=== PATIENT | female | born 1960 ===

== ENCOUNTER 2019-04-20 16:59 | Inpatient (IN) | payer MEDICAID ==
[2019-04-20] MEDS ORDERED: VANCOMYCIN 1,750 MG in SODIUM CHLORIDE 0.9% 500 ML 500 ML IV ONE (18:02)
[2019-04-20] MEDS ORDERED: CEFEPIME/NS 2 GM/100 ML 2 GM/100 ML BAG IV SCH (18:02)
[2019-04-20] MEDS ORDERED: FUROSEMIDE 40 MG/4 ML INJ IV ONE (18:03)
[2019-04-20] MEDS ORDERED: ACETAMINOPHEN 500 MG TAB PO ONE (18:03)
--- NOTE | 2019-04-20 18:28 | XRay Report ---
CHEST 1 VIEW INDICATION: possible Sepsis. COMPARISON: None FINDINGS: Support devices: None. Heart: Mild cardiomegaly. Lungs/Pleura: Minimal edema. Additional findings: None. IMPRESSION: 1. Mild cardiomegaly with minimal edema. Signer Name: Gerry Gayle MD Signed: 04/20/2019 6:24 PM Workstation Name: [id number]
[2019-04-20 18:58] LABS: Basophils % (Auto) 0.2 % (0.0-1.8); Eosinophils % (Auto) 0.1 % (0.0-4.3); Hematocrit 39.9 % (30.3-42.9); Hemoglobin 13.3 gm/dl (10.1-14.3); Lymphocytes # (Auto) 0.7 K/mm3 (1.2-5.4); Lymphocytes % (Auto) 9.9 % (13.4-35.0); Mean Corpuscular HGB Conc 33 % (30-34); Mean Corpuscular Volume 90 fl (79-97); Monocytes # (Auto) 0.5 K/mm3 (0.0-0.8); Monocytes % (Auto) 7.3 % (0.0-7.3); Platelet Count 168 K/mm3 (140-440); Red Blood Count 4.42 M/mm3 (3.65-5.03)
[2019-04-20] MEDS ORDERED: VANCOMYCIN PHARMACY TO DOSE IV SCH (19:00)
[2019-04-20 19:12] LABS: Alanine Aminotransferase 19 units/L (7-56); Albumin 3.6 g/dL (3.9-5); BUN/Creatinine Ratio 17; Blood Urea Nitrogen 12 mg/dL (7-17); Calcium 9.2 mg/dL (8.4-10.2); Hemolysis Index 53
[2019-04-20 19:30] LABS: Bilirubin,Urine NEG (Negative); Blood,Urine NEG (Negative); Color,Urine Yellow (Yellow); RBC,Urine < 1.0 /HPF (0.0-6.0)
[2019-04-20] MEDS ORDERED: NITROGLYCERIN 0.4 MG TAB SUBL SL PRN (19:37)
[2019-04-20] MEDS ORDERED: ALBUTEROL 2.5 MG/3 ML NEBU IH PRN (19:37)
[2019-04-20 19:38] LABS: INR 1.9 (0.87-1.13)
--- NOTE | 2019-04-20 20:44 | History and Physical Report ---
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 ED with complaints of difficulty in breathing. Patient states that she was admitted to [facility] on 04/16/19 and discharged yesterday (04/19/19). During her admission at [facility], pt reports undergoing therapeutic and diagnostic thoracentesis with removal of approx 1L of fluid. Per pt report pathology was negative for malignancy from thoracentesis. Since being discharged from [facility], patient states that she is experiencing difficulty in breathing. She was unable to lie flat last night, which caused her to sit up and sleep in the couch. As the day progressed her dyspnea worsened. She decided to come in for further evaluation and treatment. Additionally pt complains of pelvic pain, which she describes as sharp and rates 6/10. The pain is constant but varies in intesity. She also complains of poor appetite and poor oral intake 1 day and chills. She acknowledges intermittent nonproductive cough. Past History Past Medical History: hypertension, other (Leiomysarcoma, scoliosis, glaucoma, fibroids ) Past Surgical History: Other (knee surgery) Social history: lives with family, other (former smoker, quit 6-7 months ago, smoker for >40yrs) Family history: no significant family history Medications and Allergies Allergies Allergy/AdvReac Type Severity Reaction Status Date / Time mushrooms Allergy Unknown Uncoded 04/20/19 17:01 Home Medications Medication Instructions Recorded Confirmed Last Taken Type Furosemide [Lasix] 20 mg PO QDAY 04/20/19 04/20/19 Unknown History Lisinopril [Zestril] 20 mg PO QDAY 04/20/19 04/20/19 Unknown History carvediloL [Coreg] 3.125 mg PO BID 04/20/19 04/20/19 Unknown History Active Meds: Active Medications Acetaminophen (Tylenol) 650 mg PO Q4H PRN PRN Reason: Pain MILD(1-3)/Fever >100.5/MARTINEZ Albuterol (Proventil) 2.5 mg IH Q4HRT PRN PRN Reason: Shortness Of Breath Alprazolam (Xanax) 0.25 mg PO Q8H PRN PRN Reason: Anxiety Aspirin (Baby Aspirin) 81 mg PO QDAY [facility] Carvedilol (Coreg) 3.125 mg PO BID [facility] Docusate Sodium (Colace) 100 mg PO BID [facility] Furosemide (Lasix) 40 mg IV QDAY [facility] Heparin Sodium (Porcine) (Heparin) 5,000 unit SUB-Q Q12HR [facility] Cefepime HCl (Cefepime/Ns 2 Gm/100 Ml) 2 gm in 100 mls @ 200 mls/hr IV 0300,1100,1900 [facility]; Protocol Lisinopril (Zestril) 20 mg PO QDAY [facility] Nitroglycerin (Nitrostat) 0.4 mg SL .Q5MIN PRN PRN Reason: Chest Pain Ondansetron HCl (Zofran) 4 mg IV Q8H PRN PRN Reason: Nausea And Vomiting Potassium Chloride (K-Dur) 10 meq PO QDAY [facility] Sodium Chloride (Sodium Chloride Flush Syringe 10 Ml) 10 ml IV BID [facility] Sodium Chloride (Sodium Chloride Flush Syringe 10 Ml) 10 ml IV PRN PRN PRN Reason: LINE FLUSH Review of Systems All systems: negative Constitutional: poor appetite Cardiovascular: orthopnea, shortness of breath, dyspnea on exertion Respiratory: dyspnea on exertion Genitourinary Female: pelvic pain Exam - Physical Exam Narrative exam: Physical exam General appearance: Present: mild discomfort, alert and oriented 3, chronically ill appearing, adult female - EENT Eyes: Present: PERRL, EOM intact ENT: hearing intact, missing teeth - Neck Neck: Present: supple, normal ROM - Respiratory Respiratory effort: Non-labored Respiratory: diminished bases - Cardiovascular Heart rate: 109 (bpm) Rhythm: Sinus tachycardia Heart Sounds: Present: S1 & S2. Absent: rub, click - Extremities Extremities: no ischemia, pulses intact, - Peripheral Assessment Peripheral Pulses: within normal limits - Abdominal General gastrointestinal: soft, non-tender, normal bowel sounds - Integumentary Integumentary: Present: warm, dry - Musculoskeletal Musculoskeletal: Able to move all extremities -Neurological Neurological: CN II-XII intact - Psychiatric Psychiatric: Appropriate for situation ,cooperative - Constitutional Vitals: Temp Pulse Resp BP Pulse Ox 102.2 F H 112 H 20 166/111 100 04/20/19 17:02 04/20/19 17:02 04/20/19 18:25 04/20/19 17:02 04/20/19 18:25 Results - Labs CBC & Chem 7: 04/20/19 18:24 04/20/19 18:24 Labs: Laboratory Last Values WBC 6.8 K/mm3 (4.5-11.0) 04/20/19 18:24 RBC 4.42 M/mm3 (3.65-5.03) 04/20/19 18:24 Hgb 13.3 gm/dl (10.1-14.3) 04/20/19 18:24 Hct 39.9 % (30.3-42.9) 04/20/19 18:24 MCV 90 fl (79-97) 04/20/19 18:24 MCH 30 pg (28-32) 04/20/19 18:24 MCHC 33 % (30-34) 04/20/19 18:24 RDW 14.0 % (13.2-15.2) 04/20/19 18:24 Plt Count 168 K/mm3 (140-440) 04/20/19 18:24 Lymph % (Auto) 9.9 % (13.4-35.0) L 04/20/19 18:24 [place] % (Auto) 7.3 % (0.0-7.3) 04/20/19 18:24 Eos % (Auto) 0.1 % (0.0-4.3) 04/20/19 18:24 Baso % (Auto) 0.2 % (0.0-1.8) 04/20/19 18:24 Lymph # 0.7 K/mm3 (1.2-5.4) L 04/20/19 18:24 [place] # 0.5 K/mm3 (0.0-0.8) 04/20/19 18:24 Eos # 0.0 K/mm3 (0.0-0.4) 04/20/19 18:24 Baso # 0.0 K/mm3 (0.0-0.1) 04/20/19 18:24 Seg Neutrophils % 82.5 % (40.0-70.0) H 04/20/19 18:24 Seg Neutrophils # 5.6 K/mm3 (1.8-7.7) 04/20/19 18:24 PT 21.5 Sec. (12.2-14.9) H 04/20/19 18:24 INR 1.90 (0.87-1.13) H 04/20/19 18:24 VBG pH 7.483 (7.320-7.420) H 04/20/19 18:24 Sodium 135 mmol/L (137-145) L 04/20/19 18:24 Potassium 3.7 mmol/L (3.6-5.0) 04/20/19 18:24 Chloride 98.5 mmol/L (98-107) 04/20/19 18:24 Carbon Dioxide 24 mmol/L (22-30) 04/20/19 18:24 Anion Gap 16 mmol/L 04/20/19 18:24 BUN 12 mg/dL (7-17) 04/20/19 18:24 Creatinine 0.7 mg/dL (0.7-1.2) 04/20/19 18:24 Estimated GFR > 60 ml/min 04/20/19 18:24 BUN/Creatinine Ratio 17 % 04/20/19 18:24 Glucose 104 mg/dL (65-100) H 04/20/19 18:24 Lactic Acid 1.00 mmol/L (0.7-2.0) 04/20/19 18:24 Calcium 9.2 mg/dL (8.4-10.2) 04/20/19 18:24 Total Bilirubin 1.10 mg/dL (0.1-1.2) 04/20/19 18:24 AST > 28 units/L (5-40) 04/20/19 18:24 ALT 19 units/L (7-56) 04/20/19 18:24 Alkaline Phosphatase 72 units/L (35-129) 04/20/19 18:24 NT-Pro-B Natriuret Pep 2361 pg/mL (0-900) H 04/20/19 18:24 Total Protein 7.4 g/dL (6.3-8.2) 04/20/19 18:24 Albumin 3.6 g/dL (3.9-5) L 04/20/19 18:24 Albumin/Globulin Ratio 0.9 % 04/20/19 18:24 Urine Color Yellow (Yellow) 04/20/19 19:18 Urine Turbidity Clear (Clear) 04/20/19 19:18 Urine pH 8.0 (5.0-7.0) H 04/20/19 19:18 Ur Specific [place] 1.013 (1.003-1.030) 04/20/19 19:18 Urine Protein 30 mg/dl mg/dL (Negative) 04/20/19 19:18 Urine Glucose (UA) Neg mg/dL (Negative) 04/20/19 19:18 Urine Ketones Neg mg/dL (Negative) 04/20/19 19:18 Urine Blood Neg (Negative) 04/20/19 19:18 Urine Nitrite Neg (Negative) 04/20/19 19:18 Urine Bilirubin Neg (Negative) 04/20/19 19:18 Urine Urobilinogen 2.0 mg/dL (<2.0) 04/20/19 19:18 Ur Leukocyte Esterase Neg (Negative) 04/20/19 19:18 Urine WBC (Auto) 2.0 /HPF (0.0-6.0) 04/20/19 19:18 Urine RBC (Auto) < 1.0 /HPF (0.0-6.0) 04/20/19 19:18 U Epithel Cells (Auto) 1.0 /HPF (0-13.0) 04/20/19 19:18 - Imaging and Cardiology Imaging and Cardiology: CXR: FINDINGS: Support devices: None. Heart: Mild cardiomegaly. Lungs/Pleura: Minimal edema. Additional findings: None. IMPRESSION: 1. Mild cardiomegaly with minimal edema. 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 ED with complaints of difficulty in breathing x1 day. SIRS -HR >90, currently 112bpm -TMAX 102.2 -O2 sat <90% on RA, Pt currently on 4L NC with saturation of 96% -No leukocytosis -Blood and Urine cultures pending -Rapid Flu pending -Started on empiric Abx Acute Exacerbation CHF -Diagnosed 04/16 at [facility] -BNP elevated at 2361 -Troponin negative 1 -CXR Mild cardiomegaly with minimal edema -Continue IV Lasix -on BB and KARLIE -Cardiology consulted Acute hypoxic respiratory failure -No Baseline home oxygen requirements -Currently on 4L NC -Monitor saturations -Continue supplemental oxygen wean as tolerated Hypertensive urgency -BP on admission 166/111 -Hx Hypertension -Continue to monitor BP -Resume home antihypertensive meds to optimize BP -IV antihypertensive when necessary Acute Pelvic Pain -CT Abdomen/Pelvis Pending DVT PPX -on Heparin BID Advance Directives: No VTE prophylaxis?: Chemical Plan of care discussed with patient/family: Yes
--- NOTE | 2019-04-20 21:08 | Cat Scan Report ---
CT ABDOMEN AND PELVIS WITHOUT CONTRAST INDICATION / CLINICAL INFORMATION: pelvic pain. TECHNIQUE: Axial CT images were obtained through the abdomen and pelvis without IV contrast. All CT scans at [facility] location are performed using CT dose reduction for ALARA by means of automated exposure control. COMPARISON: None available. FINDINGS: LOWER CHEST: Small right pleural effusion with mild compressive atelectasis in the right lower lobe. Minimal left basilar atelectatic changes. Cardiomegaly is present. No significant volume of pericardi al fluid. LIVER: No significant abnormality. GALLBLADDER: No significant abnormality. BILE DUCTS: No significant abnormality. PANCREAS: No significant abnormality. SPLEEN: No significant abnormality. ADRENALS: No significant abnormality. RIGHT KIDNEY and URETER: No significant abnormality. LEFT KIDNEY and URETER: No significant abnormality. STOMACH and SMALL BOWEL: No significant abnormality. COLON: No significant abnormality. APPENDIX: No significant abnormality. PERITONEUM: No free fluid. No free air. No fluid collection. LYMPH NODES: No adenopathy. AORTA and ARTERIES: No significant abnormality. IVC and VEINS: No significant abnormality. URINARY BLADDER: Markedly distended. Mass effect causes shift to the left. REPRODUCTIVE ORGANS: Markedly enlarged, multi fibroid uterus, with some lesions showing degenerative calcification. The largest fibroid is a pedunculated lesion extending superiorly and occupying much o f the mid abdomen. This mass is clearly connected to the remainder of the enlarged uterus but has a m ore heterogeneous attenuation with areas of internal low attenuation as well as specks of coarse calc ification that could indicate early degenerative change. The overall dimensions of this fibroid are 1 2.7 x 21.5 x 15.4 cm (AP by TV by CC). It displaces bowel loops and other abdominal organs. No eviden ce of invasion is appreciated within limitations of noncontrast technique. ADDITIONAL FINDINGS: Small left-sided fat-containing inguinal hernia. SKELETAL SYSTEM: No significant abnormality. IMPRESSION: 1. Markedly enlarged and multi fibroid uterus, with largest pedunculated lesion measuring 21.5 cm in greatest dimension. Although it is a rare entity, malignant degeneration to leiomyosarcoma should at least be considered in this case given the unusually large size of the fibroid. Surgical referral is recommended. 2. No acute abnormality. 3. No overt evidence of metastatic disease in the abdomen and pelvis. 4. Small right pleural effusion. Signer Name: Iban Cancino MD Signed: 04/20/2019 9:03 PM Workstation Name: [id number]
[2019-04-20] MEDS ORDERED: ACETAMINOPHEN 325 MG TAB ONE (21:12)
[2019-04-20] MEDS: ACETAMINOPHEN 325 MG TAB PO PRN (21:13)
--- NOTE | 2019-04-20 22:12 | Emergency Department Report ---
ED Shortness of Breath HPI - General Chief Complaint: Chest Pain Stated Complaint: CHEST PAIN Time Seen by Provider: 04/20/19 17:56 Source: patient, family Mode of arrival: Wheelchair Limitations: Physical Limitation - History of Present Illness Initial Comments: CC: "CHF" HPI: Mrs. Resendiz is a 58 yo female with history of CHF, hypertension and uterin e fibroids who presents with shortness of breath. She was admitted this week and discharged with new diagnosis of congestive heart failure. Discharged from hospital yesterday. She stated she underwent thoracentesis for large collection of fluid in her lung on the right. She's also had mild headache. Denies any fever, cough. She only has persistent shortness of breath. She did not take her new cardiac medications today. No PCP. She has not treated her hypertension in several years. MD Complaint: shortness of breath -: Gradual, days(s) (several) Severity: moderate Consistency: constant Worsens With: lying flat Known History Of: congestive heart failure Context: recent illness Associated Symptoms: other (headache) Treatments Prior to Arrival: none - Related Data Home Oxygen Therapy: No Home Medications Medication Instructions Recorded Confirmed Last Taken Furosemide [Lasix] 20 mg PO QDAY 04/20/19 04/20/19 Unknown Lisinopril [Zestril] 20 mg PO QDAY 04/20/19 04/20/19 Unknown carvediloL [Coreg] 3.125 mg PO BID 04/20/19 04/20/19 Unknown Allergies Allergy/AdvReac Type Severity Reaction Status Date / Time mushrooms Allergy Unknown Uncoded 04/20/19 17:01 ED Review of Systems ROS: Stated complaint: CHEST PAIN Other details as noted in HPI Comment: All other systems reviewed and negative Constitutional: malaise. denies: chills, fever Respiratory: shortness of breath. denies: cough Cardiovascular: denies: chest pain Gastrointestinal: denies: abdominal pain, nausea, vomiting ED Past Medical Hx - Past Medical History Previous Medical History?: Yes Hx Hypertension: Yes Hx Congestive Heart Failure: Yes Additional medical history: stephanie lower ext. edema - Surgical History Past Surgical History?: No - Social History Smoking Status: Never Smoker Substance Use Type: Alcohol, Prescribed - Medications Home Medications: Home Medications Medication Instructions Recorded Confirmed Last Taken Type Furosemide [Lasix] 20 mg PO QDAY 04/20/19 04/20/19 Unknown History Lisinopril [Zestril] 20 mg PO QDAY 04/20/19 04/20/19 Unknown History carvediloL [Coreg] 3.125 mg PO BID 04/20/19 04/20/19 Unknown History ED Physical Exam - General Limitations: Physical Limitation General appearance: alert, in no apparent distress, other (appears uncomfortable out of breath) - Head Head exam: Present: atraumatic, normocephalic - Eye Eye exam: Present: normal appearance - ENT ENT exam: Present: mucous membranes moist - Neck Neck exam: Present: normal inspection, full ROM - Respiratory Respiratory exam: Present: respiratory distress, decreased breath sounds. Absent: wheezes, rales, rhonchi - Cardiovascular Cardiovascular Exam: Present: normal rhythm, tachycardia, normal heart sounds. Absent: systolic murmur, diastolic murmur, rubs, gallop - GI/Abdominal GI/Abdominal exam: Present: soft, distended, other (no tympany but obviously distended). Absent: tenderness, guarding, rebound - Extremities Exam Extremities exam: Present: other (cachetic lower extremities) - Neurological Exam Neurological exam: Present: alert, oriented X3 - Psychiatric Psychiatric exam: Present: normal affect, normal mood - Skin Skin exam: Present: warm, dry, intact, normal color. Absent: rash ED Course Vital Signs 04/20/19 04/20/19 04/20/19 17:02 18:25 19:05 Temperature 102.2 F H 99.5 F Pulse Rate 112 H 102 H Respiratory 24 20 16 Rate Blood Pressure 166/111 Blood Pressure 152/95 [Left] O2 Sat by Pulse 96 100 98 Oximetry 04/20/19 04/20/19 20:01 21:13 Temperature Pulse Rate 103 H Respiratory 15 16 Rate Blood Pressure 145/89 Blood Pressure [Left] O2 Sat by Pulse 99 Oximetry ED Medical Decision Making - Lab Data Result diagrams: 04/20/19 18:24 04/20/19 18:24 Laboratory Results - last 24 hr 04/20/19 04/20/19 04/20/19 18:24 18:24 18:24 WBC 6.8 RBC 4.42 Hgb 13.3 Hct 39.9 MCV 90 MCH 30 MCHC 33 RDW 14.0 Plt Count 168 Lymph % (Auto) 9.9 L [place] % (Auto) 7.3 Eos % (Auto) 0.1 Baso % (Auto) 0.2 Lymph # 0.7 L [place] # 0.5 Eos # 0.0 Baso # 0.0 Seg Neutrophils % 82.5 H Seg Neutrophils # 5.6 PT 21.5 H INR 1.90 H VBG pH Sodium 135 L Potassium 3.7 Chloride 98.5 Carbon Dioxide 24 Anion Gap 16 BUN 12 Creatinine 0.7 Estimated GFR > 60 BUN/Creatinine Ratio 17 Glucose 104 H Lactic Acid Calcium 9.2 Total Bilirubin 1.10 AST > 28 ALT 19 Alkaline Phosphatase 72 NT-Pro-B Natriuret Pep Total Protein 7.4 Albumin 3.6 L Albumin/Globulin Ratio 0.9 Urine Color Urine Turbidity Urine pH Ur Specific [place] Urine Protein Urine Glucose (UA) Urine Ketones Urine Blood Urine Nitrite Urine Bilirubin Urine Urobilinogen Ur Leukocyte Esterase Urine WBC (Auto) Urine RBC (Auto) U Epithel Cells (Auto) 04/20/19 04/20/19 04/20/19 18:24 18:24 18:24 WBC RBC Hgb Hct MCV MCH MCHC RDW Plt Count Lymph % (Auto) [place] % (Auto) Eos % (Auto) Baso % (Auto) Lymph # [place] # Eos # Baso # Seg Neutrophils % Seg Neutrophils # PT INR VBG pH 7.483 H Sodium Potassium Chloride Carbon Dioxide Anion Gap BUN Creatinine Estimated GFR BUN/Creatinine Ratio Glucose Lactic Acid 1.00 Calcium Total Bilirubin AST ALT Alkaline Phosphatase NT-Pro-B Natriuret Pep 2361 H Total Protein Albumin Albumin/Globulin Ratio Urine Color Urine Turbidity Urine pH Ur Specific [place] Urine Protein Urine Glucose (UA) Urine Ketones Urine Blood Urine Nitrite Urine Bilirubin Urine Urobilinogen Ur Leukocyte Esterase Urine WBC (Auto) Urine RBC (Auto) U Epithel Cells (Auto) 04/20/19 19:18 WBC RBC Hgb Hct MCV MCH MCHC RDW Plt Count Lymph % (Auto) [place] % (Auto) Eos % (Auto) Baso % (Auto) Lymph # [place] # Eos # Baso # Seg Neutrophils % Seg Neutrophils # PT INR VBG pH Sodium Potassium Chloride Carbon Dioxide Anion Gap BUN Creatinine Estimated GFR BUN/Creatinine Ratio Glucose Lactic Acid Calcium Total Bilirubin AST ALT Alkaline Phosphatase NT-Pro-B Natriuret Pep Total Protein Albumin Albumin/Globulin Ratio Urine Color Yellow Urine Turbidity Clear Urine pH 8.0 H Ur Specific [place] 1.013 Urine Protein 30 mg/dl Urine Glucose (UA) Neg Urine Ketones Neg Urine Blood Neg Urine Nitrite Neg Urine Bilirubin Neg Urine Urobilinogen 2.0 Ur Leukocyte Esterase Neg Urine WBC (Auto) 2.0 Urine RBC (Auto) < 1.0 U Epithel Cells (Auto) 1.0 - EKG Data 04/20/19 22:14 EKG obtained 1717 Sinus tachycardia rate 110 beats a minute left axis deviation +LVH criteria no ST elevation nonspecific T-wave pattern - Radiology Data Radiology results: report reviewed CXR: mild cardiomegaly mild edema - Medical Decision Making 1. dyspnea: CHF findings on CXR with elevated BNP, did consider PE/PNA with rec ent hospitalization and fever, 2. abdominal distention with hx of uterine fibroids, concern for abdominal ascites will need further evaluation 3. fever without obvious lung infiltrate: possible influenza, sepsis protocol initiated, broad spectrum abx initiated admitted to hospitalist service in fair condition Critical care attestation.: If time is entered above; I have spent that time in minutes in the direct care of this critically ill patient, excluding procedure time. ED Disposition Clinical Impression: Acute exacerbation of congestive heart failure, History of uterine fibroid, Fever Disposition: OP ADMIT IP TO THIS HOSP Is pt being admited?: Yes Does the pt Need Aspirin: No
[2019-04-21] MEDS: ALPRAZolam 0.25 MG TAB PO PRN (00:01)
[2019-04-21] MEDS: ACETAMINOPHEN 325 MG TAB PO PRN (00:01)
[2019-04-21] MEDS: carvediloL 3.125 MG TAB PO SCH ×3 (00:02→22:32)
[2019-04-21] MEDS: HEPARIN 5,000 UNIT/1 ML VIAL SUB-Q SCH ×3 (00:02→22:37)
[2019-04-21] MEDS: DOCUSATE SODIUM 100 MG CAP PO SCH ×3 (00:02→22:32)
[2019-04-21] MEDS ORDERED: CEFEPIME/NS 2 GM/100 ML 2 GM/100 ML BAG IV SCH (03:00)
[2019-04-21 06:40] LABS: Basophils % (Auto) 0.5 % (0.0-1.8); Eosinophils % (Auto) 0.6 % (0.0-4.3); Hematocrit 39.6 % (30.3-42.9); Lymphocytes # (Auto) 1.2 K/mm3 (1.2-5.4); Lymphocytes % (Auto) 18.5 % (13.4-35.0); Mean Corpuscular HGB Conc 33 % (30-34); Mean Corpuscular Volume 91 fl (79-97); Monocytes # (Auto) 0.7 K/mm3 (0.0-0.8); Monocytes % (Auto) 10.6 % (0.0-7.3); Platelet Count 154 K/mm3 (140-440); Red Blood Count 4.37 M/mm3 (3.65-5.03)
[2019-04-21 07:02] LABS: BUN/Creatinine Ratio 18; Blood Urea Nitrogen 14 mg/dL (7-17); Hemolysis Index 3
[2019-04-21] MEDS: oxyCODONE /ACETAMINOPHEN 5-325MG TAB PO PRN ×2 (07:49→20:35)
[2019-04-21] MEDS: FUROSEMIDE 40 MG/4 ML INJ IV SCH (10:09)
[2019-04-21] MEDS: CEFEPIME/NS 2 GM/100 ML 2 GM/100 ML BAG IV SCH ×3 (10:10→22:31)
[2019-04-21] MEDS: VANCOMYCIN 1,250 MG in SODIUM CHLORIDE 0.9% 250ML 250 ML IV SCH ×2 (10:10→20:26)
[2019-04-21] MEDS: POTASSIUM CHLORIDE ER 10 MEQ TAB PO SCH (10:10)
[2019-04-21] MEDS: ASPIRIN 81 MG TAB CHEW PO SCH (10:10)
[2019-04-21] MEDS: LISINOPRIL 20 MG TAB PO SCH (10:10)
--- NOTE | 2019-04-21 10:11 | Progress Note ---
Assessment and Plan Assessment and plan: 58-year-old woman with history of CHF hypertension and fibroids who who admitted to drinking too much water at home. She presents to the hospital complaining of shortness of breath, dyspnea on exertion and pelvic pain. She states that she was just at [facility] a few days ago and had right pleural effusion tapped Acute on chronic systolic heart failure Patient was counseled about fluid restriction, Continue diuretics Cardiology input appreciated, obtaining data from outside hospital. Uterine fibroids [employer] consult sent Preventative health counseling performed for 17 minutes Hospitalist Physical - Constitutional Vitals: Temp Pulse Resp BP Pulse Ox 97.8 F 93 H 20 147/100 97 04/21/19 07:47 04/21/19 07:47 04/21/19 07:49 04/21/19 07:47 04/21/19 07:47 Results - Labs CBC & Chem 7: 04/21/19 05:21 04/21/19 05:21 Labs: Laboratory Last Values WBC 6.6 K/mm3 (4.5-11.0) 04/21/19 05:21 RBC 4.37 M/mm3 (3.65-5.03) 04/21/19 05:21 Hgb 13.0 gm/dl (10.1-14.3) 04/21/19 05:21 Hct 39.6 % (30.3-42.9) 04/21/19 05:21 MCV 91 fl (79-97) 04/21/19 05:21 MCH 30 pg (28-32) 04/21/19 05:21 MCHC 33 % (30-34) 04/21/19 05:21 RDW 14.0 % (13.2-15.2) 04/21/19 05:21 Plt Count 154 K/mm3 (140-440) 04/21/19 05:21 Lymph % (Auto) 18.5 % (13.4-35.0) 04/21/19 05:21 [place] % (Auto) 10.6 % (0.0-7.3) H 04/21/19 05:21 Eos % (Auto) 0.6 % (0.0-4.3) 04/21/19 05:21 Baso % (Auto) 0.5 % (0.0-1.8) 04/21/19 05:21 Lymph # 1.2 K/mm3 (1.2-5.4) 04/21/19 05:21 [place] # 0.7 K/mm3 (0.0-0.8) 04/21/19 05:21 Eos # 0.0 K/mm3 (0.0-0.4) 04/21/19 05:21 Baso # 0.0 K/mm3 (0.0-0.1) 04/21/19 05:21 Seg Neutrophils % 69.8 % (40.0-70.0) 04/21/19 05:21 Seg Neutrophils # 4.6 K/mm3 (1.8-7.7) 04/21/19 05:21 PT 21.5 Sec. (12.2-14.9) H 04/20/19 18:24 INR 1.90 (0.87-1.13) H 04/20/19 18:24 VBG pH 7.483 (7.320-7.420) H 04/20/19 18:24 Sodium 137 mmol/L (137-145) 04/21/19 05:21 Potassium 3.0 mmol/L (3.6-5.0) L 04/21/19 05:21 Chloride 95.6 mmol/L (98-107) L 04/21/19 05:21 Carbon Dioxide 25 mmol/L (22-30) 04/21/19 05:21 Anion Gap 19 mmol/L 04/21/19 05:21 BUN 14 mg/dL (7-17) 04/21/19 05:21 Creatinine 0.8 mg/dL (0.7-1.2) 04/21/19 05:21 Estimated GFR > 60 ml/min 04/21/19 05:21 BUN/Creatinine Ratio 18 % 04/21/19 05:21 Glucose 89 mg/dL (65-100) 04/21/19 05:21 Lactic Acid 1.00 mmol/L (0.7-2.0) 04/20/19 18:24 Calcium 9.0 mg/dL (8.4-10.2) 04/21/19 05:21 Total Bilirubin 1.10 mg/dL (0.1-1.2) 04/20/19 18:24 AST > 28 units/L (5-40) 04/20/19 18:24 ALT 19 units/L (7-56) 04/20/19 18:24 Alkaline Phosphatase 72 units/L (35-129) 04/20/19 18:24 NT-Pro-B Natriuret Pep 2361 pg/mL (0-900) H 04/20/19 18:24 Total Protein 7.4 g/dL (6.3-8.2) 04/20/19 18:24 Albumin 3.6 g/dL (3.9-5) L 04/20/19 18:24 Albumin/Globulin Ratio 0.9 % 04/20/19 18:24 Urine Color Yellow (Yellow) 04/20/19 19:18 Urine Turbidity Clear (Clear) 04/20/19 19:18 Urine pH 8.0 (5.0-7.0) H 04/20/19 19:18 Ur Specific [place] 1.013 (1.003-1.030) 04/20/19 19:18 Urine Protein 30 mg/dl mg/dL (Negative) 04/20/19 19:18 Urine Glucose (UA) Neg mg/dL (Negative) 04/20/19 19:18 Urine Ketones Neg mg/dL (Negative) 04/20/19 19:18 Urine Blood Neg (Negative) 04/20/19 19:18 Urine Nitrite Neg (Negative) 04/20/19 19:18 Urine Bilirubin Neg (Negative) 04/20/19 19:18 Urine Urobilinogen 2.0 mg/dL (<2.0) 04/20/19 19:18 Ur Leukocyte Esterase Neg (Negative) 04/20/19 19:18 Urine WBC (Auto) 2.0 /HPF (0.0-6.0) 04/20/19 19:18 Urine RBC (Auto) < 1.0 /HPF (0.0-6.0) 04/20/19 19:18 U Epithel Cells (Auto) 1.0 /HPF (0-13.0) 04/20/19 19:18 Influenza A (Rapid) Negative (Negative) 04/20/19 Unknown Influenza B (Rapid) Negative (Negative) 04/20/19 Unknown Active Medications - Current Medications Current Medications: Generic Name Dose Route Start Last Admin Trade Name Freq PRN Reason Stop Dose Admin Acetaminophen 650 mg 04/20/19 19:37 04/21/19 00:01 Tylenol PO 650 mg Q4H PRN Administration Pain MILD(1-3)/Fever >100.5/MARTINEZ Albuterol 2.5 mg 04/20/19 19:37 Proventil IH Q4HRT PRN Shortness Of Breath Alprazolam 0.25 mg 04/20/19 19:37 04/21/19 00:01 Xanax PO 0.25 mg Q8H PRN Administration Anxiety Aspirin 81 mg 04/21/19 10:00 Baby Aspirin PO QDAY [facility] Carvedilol 3.125 mg 04/20/19 22:00 04/21/19 00:02 Coreg PO 3.125 mg BID [facility] Administration Docusate Sodium 100 mg 04/20/19 22:00 04/21/19 00:02 Colace PO 100 mg BID VIVIAN Administration Furosemide 40 mg 04/21/19 10:00 Lasix IV QDAY [facility] Heparin Sodium (Porcine) 5,000 unit 04/20/19 22:00 04/21/19 00:02 Heparin SUB-Q 5,000 unit Q12HR [facility] Administration Vancomycin HCl 1,250 mg/ 275 mls @ 166.667 mls/hr 04/21/19 08:00 Sodium Chloride IV Q12H [facility] Cefepime HCl 2 gm in 100 mls @ 200 mls/hr 04/21/19 08:30 Cefepime/Ns 2 Gm/100 Ml IV Q8HR [facility] Protocol Lisinopril 20 mg 04/21/19 10:00 Zestril PO QDAY [facility] Nitroglycerin 0.4 mg 04/20/19 19:37 Nitrostat SL .Q5MIN PRN Chest Pain Ondansetron HCl 4 mg 04/20/19 19:37 Zofran IV Q8H PRN Nausea And Vomiting Oxycodone/Acetaminophen 1 tab 04/20/19 21:33 04/21/19 07:49 Percocet 5/325 PO 1 tab Q6H PRN Administration Pain, Moderate (4-6) Potassium Chloride 10 meq 04/21/19 10:00 K-Dur PO QDAY [facility] Sodium Chloride 10 ml 04/20/19 22:00 04/21/19 00:03 Sodium Chloride Flush Syringe 10 Ml IV 10 ml BID VIVIAN Administration Sodium Chloride 10 ml 04/20/19 19:37 Sodium Chloride Flush Syringe 10 Ml IV PRN PRN LINE FLUSH
--- NOTE | 2019-04-21 10:57 | Consultation ---
History of Present Illness Consult date: 04/21/19 Requesting physician: THELMA ROSENBERG Reason for consult: pelvic pain, pelvic mass History of present illness: Pt is a 58-year-old -Cro[place] female LMP >20 years ago spontaneously with history of hypertension and Leiomysarcoma and was diagnosis with heart failure at [facility] (04/16/19) who presented to [facility] ED with complaints of difficulty in breathing. Patient states that she was admitted to [facility] on 04/16/19 and discharged 04/19/19. During her admission at [facility], she reports undergoing therapeutic and diagnostic thoracentesis with removal of approx 1L of fluid. Per pt report pathology was negative for malignancy from thoracentesis. Since being discharged from [facility], she states that she is experiencing difficulty in breathing. She was unable to lie flat last night, which caused her to sit up and sleep in the couch. As the day progressed her dyspnea worsened. She decided to come in for further evaluation and treatment. Additionally she complained of pelvic pain, which she describes as sharp and rates 6/10. The pain is constant but varies in intensity. She also complains of poor appetite and poor oral intake 1 day and chills. She acknowledges intermittent nonproductive cough. A CT Scan was done that showed a Markedly enlarged, multi fibroid uterus, with some lesions showing degenerative calcification. The largest fibroid is a pedunculated lesion extending superiorly and occupying much of the mid abdomen. This mass is clearly connected to the remainder of the enlarged uterus but has a more heterogeneous attenuation with areas of internal low attenuation as well as specks of coarse calcification that could indicate early degenerative change. The overall dimensions of this fibroid are 12.7 x 21.5 x 15.4 cm (AP by TV by CC). It displaces bowel loops and other abdominal organs. No evidence of invasion is appreciated within limitations of non-contrast technique. I have been consulted to further evaluate this pelvic mass. She was not sure if any testing or evaluation of the mass was done at [facility]. Past History Past Medical History: heart disease (heart failure;), hypertension, other (scoliosis; glaucoma) Past Surgical History: other (knee surgery) CONCIERGE History: fibroids Family/Genetic History: none Social history: no significant social history, single Medications and Allergies Allergies Allergy/AdvReac Type Severity Reaction Status Date / Time mushrooms Allergy Unknown Uncoded 04/20/19 17:01 Home Medications Medication Instructions Recorded Confirmed Last Taken Type Furosemide [Lasix] 20 mg PO QDAY 04/20/19 04/20/19 Unknown History Lisinopril [Zestril] 20 mg PO QDAY 04/20/19 04/20/19 Unknown History carvediloL [Coreg] 3.125 mg PO BID 04/20/19 04/20/19 Unknown History Active Meds: Active Medications Acetaminophen (Tylenol) 650 mg PO Q4H PRN PRN Reason: Pain MILD(1-3)/Fever >100.5/MARTINEZ Last Admin: 04/21/19 00:01 Dose: 650 mg Documented by: Albuterol (Proventil) 2.5 mg IH Q4HRT PRN PRN Reason: Shortness Of Breath Alprazolam (Xanax) 0.25 mg PO Q8H PRN PRN Reason: Anxiety Last Admin: 04/21/19 00:01 Dose: 0.25 mg Documented by: Aspirin (Baby Aspirin) 81 mg PO QDAY [facility] Last Admin: 04/21/19 10:10 Dose: 81 mg Documented by: Carvedilol (Coreg) 3.125 mg PO BID [facility] Last Admin: 04/21/19 10:09 Dose: 3.125 mg Documented by: Docusate Sodium (Colace) 100 mg PO BID [facility] Last Admin: 04/21/19 10:09 Dose: 100 mg Documented by: Furosemide (Lasix) 40 mg IV QDAY [facility] Last Admin: 04/21/19 10:09 Dose: 40 mg Documented by: Heparin Sodium (Porcine) (Heparin) 5,000 unit SUB-Q Q12HR [facility] Last Admin: 04/21/19 10:09 Dose: 5,000 unit Documented by: Vancomycin HCl 1,250 mg/ (Sodium Chloride) 275 mls @ 166.667 mls/hr IV Q12H [facility] Last Admin: 04/21/19 10:10 Dose: 166.667 mls/hr Documented by: Cefepime HCl (Cefepime/Ns 2 Gm/100 Ml) 2 gm in 100 mls @ 200 mls/hr IV Q8HR [facility]; Protocol Last Admin: 04/21/19 10:10 Dose: 200 mls/hr Documented by: Lisinopril (Zestril) 20 mg PO QDAY [facility] Last Admin: 04/21/19 10:10 Dose: 20 mg Documented by: Nitroglycerin (Nitrostat) 0.4 mg SL .Q5MIN PRN PRN Reason: Chest Pain Ondansetron HCl (Zofran) 4 mg IV Q8H PRN PRN Reason: Nausea And Vomiting Oxycodone/Acetaminophen (Percocet 5/325) 1 tab PO Q6H PRN PRN Reason: Pain, Moderate (4-6) Last Admin: 04/21/19 07:49 Dose: 1 tab Documented by: Potassium Chloride (K-Dur) 10 meq PO QDAY [facility] Last Admin: 04/21/19 10:10 Dose: 10 meq Documented by: Sodium Chloride (Sodium Chloride Flush Syringe 10 Ml) 10 ml IV BID [facility] Last Admin: 04/21/19 10:11 Dose: 10 ml Documented by: Sodium Chloride (Sodium Chloride Flush Syringe 10 Ml) 10 ml IV PRN PRN PRN Reason: LINE FLUSH Review of Systems All systems: negative Constitutional: weight gain, fatigue Genitourinary: pelvic pain, no vaginal bleeding - Vital Signs Vital signs: Vital Signs Temp Pulse Resp BP Pulse Ox 102.2 F H 112 H 24 166/111 96 04/20/19 17:02 04/20/19 17:02 04/20/19 17:02 04/20/19 17:02 04/20/19 17:02 Temp Pulse Resp BP Pulse Ox 97.8 F 93 H 20 147/100 97 04/21/19 07:47 04/21/19 10:10 04/21/19 07:49 04/21/19 10:10 04/21/19 07:47 - Physical Exam Breasts: Positive: deferred Abdomen: Positive: distention, mass Genitourinary (Female): Positive: other (deferred) Uterus: Positive: enlarged Extremities: Positive: normal Results Result Diagrams: 04/21/19 05:21 04/21/19 05:21 Abnormal lab results 04/20/19 04/20/19 04/20/19 Range/Units 18:24 18:24 18:24 Lymph % (Auto) 9.9 L (13.4-35.0) % [place] % (Auto) (0.0-7.3) % Lymph # 0.7 L (1.2-5.4) K/mm3 Seg Neutrophils % 82.5 H (40.0-70.0) % PT 21.5 H (12.2-14.9) Sec. INR 1.90 H (0.87-1.13) VBG pH (7.320-7.420) Sodium 135 L (137-145) mmol/L Potassium (3.6-5.0) mmol/L Chloride (98-107) mmol/L Glucose 104 H (65-100) mg/dL NT-Pro-B Natriuret Pep (0-900) pg/mL Albumin 3.6 L (3.9-5) g/dL Urine pH (5.0-7.0) 04/20/19 04/20/19 04/20/19 Range/Units 18:24 18:24 19:18 Lymph % (Auto) (13.4-35.0) % [place] % (Auto) (0.0-7.3) % Lymph # (1.2-5.4) K/mm3 Seg Neutrophils % (40.0-70.0) % PT (12.2-14.9) Sec. INR (0.87-1.13) VBG pH 7.483 H (7.320-7.420) Sodium (137-145) mmol/L Potassium (3.6-5.0) mmol/L Chloride (98-107) mmol/L Glucose (65-100) mg/dL NT-Pro-B Natriuret Pep 2361 H (0-900) pg/mL Albumin (3.9-5) g/dL Urine pH 8.0 H (5.0-7.0) 04/21/19 04/21/19 Range/Units 05:21 05:21 Lymph % (Auto) (13.4-35.0) % [place] % (Auto) 10.6 H (0.0-7.3) % Lymph # (1.2-5.4) K/mm3 Seg Neutrophils % (40.0-70.0) % PT (12.2-14.9) Sec. INR (0.87-1.13) VBG pH (7.320-7.420) Sodium (137-145) mmol/L Potassium 3.0 L (3.6-5.0) mmol/L Chloride 95.6 L (98-107) mmol/L Glucose (65-100) mg/dL NT-Pro-B Natriuret Pep (0-900) pg/mL Albumin (3.9-5) g/dL Urine pH (5.0-7.0) All other labs normal. 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 (2) Accelerated hypertension Onset Date: 04/21/19 Current Visit: Yes Status: Acute (3) Acute exacerbation of congestive heart failure Onset Date: 04/21/19 Current Visit: Yes Status: Acute (4) History of thoracentesis Onset Date: 04/21/19 Current Visit: Yes Status: Acute
--- NOTE | 2019-04-21 12:22 | Consultation ---
History of Present Illness Consult date: 04/21/19 Requesting physician: THELMA ROSENBERG Consult reason: congestive heart failure History of present illness: The pt is a 58-year-old female with a past medical history of newly diagnosed HF (reported EF 30%), HTN, Leiomysarcoma, glaucoma, former marijuana smoker. She is previously unknown to our practice. She was admitted to [facility] on 04/16/19 for new onset heart failure. During her admission at [facility], pt reports undergoing thoracentesis with removal of approx 1L of fluid. Per pt report pathology was negative for malignancy from thoracentesis. She reportedly underwent echo which showed EF 30%. She denies undergoing any ischemic evaluation. Pt was discharged from [facility] on 04/19/2019. Following discharge, pt reports that she was unaware that she was supposed to be on a fluid restriction and she was feeling quite th irsty so she drank "a lot" of fruit juice. She then began experiencing SOB and orthopnea and decided to seek medical attention. She also c/o a bout of midsternal chest pressure which has since resolved. She denies any palpitations, n/v, diaphoresis, dizziness or syncope. Past History Past Medical History: heart failure, hypertension, other (Leiomysarcoma, scoliosis, glaucoma, fibroids ) Past Surgical History: Other (knee surgery) Social history: lives with family, other (former smoker, quit 6-7 months ago, smoker for >40yrs) Family history: no significant family history Medications and Allergies Allergies Allergy/AdvReac Type Severity Reaction Status Date / Time mushrooms Allergy Unknown Uncoded 04/20/19 17:01 Home Medications Medication Instructions Recorded Confirmed Last Taken Type Furosemide [Lasix] 20 mg PO QDAY 04/20/19 04/20/19 Unknown History Lisinopril [Zestril] 20 mg PO QDAY 04/20/19 04/20/19 Unknown History carvediloL [Coreg] 3.125 mg PO BID 04/20/19 04/20/19 Unknown History Active Meds: Active Medications Acetaminophen (Tylenol) 650 mg PO Q4H PRN PRN Reason: Pain MILD(1-3)/Fever >100.5/MARTINEZ Last Admin: 04/21/19 00:01 Dose: 650 mg Documented by: Albuterol (Proventil) 2.5 mg IH Q4HRT PRN PRN Reason: Shortness Of Breath Alprazolam (Xanax) 0.25 mg PO Q8H PRN PRN Reason: Anxiety Last Admin: 04/21/19 00:01 Dose: 0.25 mg Documented by: Aspirin (Baby Aspirin) 81 mg PO QDAY [facility] Last Admin: 04/21/19 10:10 Dose: 81 mg Documented by: Carvedilol (Coreg) 3.125 mg PO BID [facility] Last Admin: 04/21/19 10:09 Dose: 3.125 mg Documented by: Docusate Sodium (Colace) 100 mg PO BID [facility] Last Admin: 04/21/19 10:09 Dose: 100 mg Documented by: Furosemide (Lasix) 40 mg IV QDAY [facility] Last Admin: 04/21/19 10:09 Dose: 40 mg Documented by: Heparin Sodium (Porcine) (Heparin) 5,000 unit SUB-Q Q12HR [facility] Last Admin: 04/21/19 10:09 Dose: 5,000 unit Documented by: Vancomycin HCl 1,250 mg/ (Sodium Chloride) 275 mls @ 166.667 mls/hr IV Q12H [facility] Last Admin: 04/21/19 10:10 Dose: 166.667 mls/hr Documented by: Cefepime HCl (Cefepime/Ns 2 Gm/100 Ml) 2 gm in 100 mls @ 200 mls/hr IV Q8HR [facility]; Protocol Last Admin: 04/21/19 10:10 Dose: 200 mls/hr Documented by: Lisinopril (Zestril) 20 mg PO QDAY [facility] Last Admin: 04/21/19 10:10 Dose: 20 mg Documented by: Nitroglycerin (Nitrostat) 0.4 mg SL .Q5MIN PRN PRN Reason: Chest Pain Ondansetron HCl (Zofran) 4 mg IV Q8H PRN PRN Reason: Nausea And Vomiting Oxycodone/Acetaminophen (Percocet 5/325) 1 tab PO Q6H PRN PRN Reason: Pain, Moderate (4-6) Last Admin: 04/21/19 07:49 Dose: 1 tab Documented by: Potassium Chloride (K-Dur) 10 meq PO QDAY [facility] Last Admin: 04/21/19 10:10 Dose: 10 meq Documented by: Sodium Chloride (Sodium Chloride Flush Syringe 10 Ml) 10 ml IV BID VIVIAN Last Admin: 04/21/19 10:11 Dose: 10 ml Documented by: Sodium Chloride (Sodium Chloride Flush Syringe 10 Ml) 10 ml IV PRN PRN PRN Reason: LINE FLUSH Review of Systems Constitutional: no fever, no chills, no sweats Ears, nose, mouth and throat: no ear pain, no nose pain, no sinus pressure, no sinus pain Cardiovascular: chest pain, orthopnea, shortness of breath, dyspnea on exertion, high blood pressure, no palpitations, no rapid/irregular heart beat, no edema, no syncope, no lightheadedness, no leg edema Respiratory: shortness of breath, dyspnea on exertion, no cough, no congestion, no wheezing, no pain on inspiration Gastrointestinal: no abdominal pain, no nausea, no vomiting, no diarrhea, no constipation, no change in bowel habits Genitourinary Female: no pelvic pain, no flank pain, no dysuria, no urinary frequency, no urgency Musculoskeletal: no neck stiffness, no neck pain, no shooting arm pain, no arm numbness/tingling, no low back pain, no shooting leg pain Integumentary: no rash, no pruritis, no redness, no sores, no wounds Neurological: no head injury, no paralysis, no weakness, no parathesias, no numbness, no tingling, no seizures, no syncope Psychiatric: no anxiety Endocrine: no cold intolerance, no heat intolerance Hematologic/Lymphatic: no easy bruising, no easy bleeding Allergic/Immunologic: no urticaria, no wheezing Physical Examination Vital Signs Temp Pulse Resp BP Pulse Ox 102.2 F H 112 H 24 166/111 96 04/20/19 17:02 04/20/19 17:02 04/20/19 17:02 04/20/19 17:02 04/20/19 17:02 General appearance: no acute distress HEENT: Positive: PERRL, Normocephaly, Mucus Membranes Moist Neck: Positive: neck supple, trachea midline Cardiac: Positive: Reg Rate and Rhythm, S1/S2 Lungs: Positive: Decreased Breath Sounds Neuro: Positive: Grossly Intact Abdomen: Negative: Tender Skin: Negative: Rash Musculoskeletal: No Pain Extremities: Absent: edema Results 04/21/19 05:21 04/21/19 05:21 Cardiac Enzymes 04/20/19 Range/Units 18:24 AST > 28 (5-40) units/L Coagulation 04/20/19 Range/Units 18:24 PT 21.5 H (12.2-14.9) Sec. INR 1.90 H (0.87-1.13) CBC 04/20/19 04/21/19 Range/Units 18:24 05:21 WBC 6.8 6.6 (4.5-11.0) K/mm3 RBC 4.42 4.37 (3.65-5.03) M/mm3 Hgb 13.3 13.0 (10.1-14.3) gm/dl Hct 39.9 39.6 (30.3-42.9) % Plt Count 168 154 (140-440) K/mm3 Lymph # 0.7 L 1.2 (1.2-5.4) K/mm3 [place] # 0.5 0.7 (0.0-0.8) K/mm3 Eos # 0.0 0.0 (0.0-0.4) K/mm3 Baso # 0.0 0.0 (0.0-0.1) K/mm3 Comprehensive Metabolic Panel 04/20/19 04/21/19 Range/Units 18:24 05:21 Sodium 135 L 137 (137-145) mmol/L Potassium 3.7 3.0 L (3.6-5.0) mmol/L Chloride 98.5 95.6 L (98-107) mmol/L Carbon Dioxide 24 25 (22-30) mmol/L BUN 12 14 (7-17) mg/dL Creatinine 0.7 0.8 (0.7-1.2) mg/dL Glucose 104 H 89 (65-100) mg/dL Calcium 9.2 9.0 (8.4-10.2) mg/dL AST > 28 (5-40) units/L ALT 19 (7-56) units/L Alkaline Phosphatase 72 (35-129) units/L Total Protein 7.4 (6.3-8.2) g/dL Albumin 3.6 L (3.9-5) g/dL - Imaging and Cardiology EKG: report reviewed, image reviewed EKG interpretations - Telemetry EKG Rhythm: Sinus Rhythm - EKG Sinus rhythms and dysrhythmias: sinus rhythm Chamber hypertrophy or enlargement: left ventricular hypertro Assessment and Plan Agree with present cardiac regimen. We will attempt to obtain pt's medical records from [facility]. According pt, she has EF 30% with no prior ischemic evaluation and she did experience some chest pain prior to presentation. ECG with NAF. Obtain [place] and plan for lexiscan MPI stress test in AM. NPO after MN. INR is noted to be elevated - unclear significance. No systemic anticoagulation noted on pt's home medication reconciliation and LFTs WNL. F/u INR. The patient has been seen in conjunction with Dr. Hughes who agrees with the assessment and plan of care. 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
[2019-04-21 14:44] LABS: INR 1.64 (0.87-1.13)
[2019-04-21] MEDS: ONDANSETRON 4 MG/2 ML INJ IV PRN (20:34)
[2019-04-22] MEDS: CEFEPIME/NS 2 GM/100 ML 2 GM/100 ML BAG IV SCH ×2 (05:44→14:08)
[2019-04-22] MEDS: oxyCODONE /ACETAMINOPHEN 5-325MG TAB PO PRN ×2 (05:59→22:05)
[2019-04-22] MEDS ORDERED: REGADENOSON 0.4 MG/5 ML INJ IV ONE ×2 (08:10→08:19)
[2019-04-22] MEDS ORDERED: ONDANSETRON 4 MG/2 ML INJ ONE (09:12)
[2019-04-22] MEDS: ONDANSETRON 4 MG/2 ML INJ IV PRN (09:13)
--- NOTE | 2019-04-22 10:19 | Progress Note ---
Assessment and Plan Cont present cardiac management. Proceed with for lexiscan MPI stress test. INR is noted to be elevated - unclear significance. No systemic anticoagulation noted on pt's home medication reconciliation and LFTs WNL. The patient has been seen in conjunction with Dr. Hughes who agrees with the assessment and plan of care. - Patient Problems (1) Acute HFrEF (heart failure with reduced ejection fraction) Current Visit: Yes Status: Acute (2) History of thoracentesis Onset Date: 04/21/19 Current Visit: Yes Status: Acute (3) Chest pain Current Visit: Yes Status: Acute (4) Accelerated hypertension Onset Date: 04/21/19 Current Visit: Yes Status: Acute (5) Elevated INR Current Visit: Yes Status: Acute (6) Hypokalemia Current Visit: Yes Status: Acute (7) Uterine fibroid Onset Date: 04/21/19 Current Visit: Yes Status: Chronic Qualifiers: Uterine leiomyoma location: intramural, submucous, and subserous Qualified Code(s): D25.1 - Intramural leiomyoma of uterus; D25.0 - Submucous leiomyoma of uterus; D25.2 - Subserosal leiomyoma of uterus (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 in SR on tele. Objective Last Vital Signs Temp 98.3 F 04/22/19 08:00 Pulse 70 04/22/19 08:49 Resp 18 04/22/19 08:16 BP 127/83 04/22/19 08:00 Pulse Ox 98 04/22/19 08:00 - Physical Examination General: No Apparent Distress HEENT: Positive: PERRL, Normocephaly, Mucus Membranes Moist Neck: Positive: neck supple, trachea midline Cardiac: Positive: Reg Rate and Rhythm, S1/S2 Lungs: Positive: Decreased Breath Sounds Neuro: Positive: Grossly Intact Abdomen: Negative: Tender Skin: Negative: Rash Musculoskeletal: No Pain Extremities: Absent: edema - Labs and Meds Coagulation 04/21/19 Range/Units 13:51 PT 19.2 H (12.2-14.9) Sec. INR 1.64 H (0.87-1.13) - Imaging and Cardiology EKG: report reviewed, image reviewed - Telemetry EKG Rhythm: Sinus Rhythm - EKG Sinus rhythms and dysrhythmias: sinus rhythm Chamber hypertrophy or enlargement: left ventricular hypertro
[2019-04-22] MEDS: FUROSEMIDE 40 MG/4 ML INJ IV SCH (10:48)
[2019-04-22] MEDS: ASPIRIN 81 MG TAB CHEW PO SCH (10:48)
[2019-04-22] MEDS: DOCUSATE SODIUM 100 MG CAP PO SCH ×2 (10:48→22:05)
[2019-04-22] MEDS: carvediloL 3.125 MG TAB PO SCH ×2 (10:48→22:04)
[2019-04-22] MEDS: POTASSIUM CHLORIDE ER 10 MEQ TAB PO SCH (10:48)
[2019-04-22] MEDS: VANCOMYCIN 1,250 MG in SODIUM CHLORIDE 0.9% 250ML 250 ML IV SCH ×2 (10:48→20:49)
[2019-04-22] MEDS: HEPARIN 5,000 UNIT/1 ML VIAL SUB-Q SCH ×2 (10:49→22:06)
[2019-04-22] MEDS: LISINOPRIL 20 MG TAB PO SCH (10:49)
--- NOTE | 2019-04-22 12:48 | Progress Note ---
Assessment and Plan Assessment and plan: 58-year-old woman with history of CHF, hypertension and fibroids who who admitted to drinking too much water at home. She presents to the hospital complaining of shortness of breath, dyspnea on exertion and pelvic pain. She states that she was just at [facility] a few days ago and had thoracentesis for right pleural effusion. Acute on chronic systolic heart failure, EF unknown -improving on IV diuretics -for ischemic evaluation with stress test today -cardiology following: data from outside hospital pending Sepsis with staph aureus Bacteremia, POA -1 out of 2 bottles -on IV cefepime and Vanc -f/u blood culture results -blood cultures repeated today -ID consulted Hypokalemia -on repletion, will monitor level -will check mg level Coagulopathy -exact cause unknown -level improving, will monitor Multiple Uterine fibroids per imaging -ROAD SUPERVISOR consulted LT arm swelling with pain -Venous duplex US to assess for DVT Disp: Blood cultures and duplex US pending. d/c per clinical course History Interval history: Pt complained of LT arm pain with swelling from IV access. Her sob has improved and she denies chest pain Hospitalist Physical - Constitutional Vitals: Temp Pulse Resp BP Pulse Ox 98.3 F 70 18 129/87 98 04/22/19 08:00 04/22/19 08:49 04/22/19 08:16 04/22/19 09:10 04/22/19 08:00 General appearance: Present: no acute distress, well-nourished - EENT Eyes: Present: PERRL, EOM intact ENT: hearing intact, clear oral mucosa - Neck Neck: Present: supple - Respiratory Respiratory effort: normal Respiratory: bilateral: diminished, rales (bibasilar) - Cardiovascular Rhythm: regular Heart Sounds: Present: S1 & S2 - Extremities Extremity abnormal: edema (LUE with tenderness) - Abdominal General gastrointestinal: soft, non-tender, distended, normal bowel sounds - Integumentary Integumentary: Present: warm, dry - Psychiatric Psychiatric: appropriate mood/affect - Neurologic Neurologic: CNII-XII intact Results - Labs CBC & Chem 7: 04/21/19 05:21 04/21/19 05:21 Labs: Laboratory Last Values WBC 6.6 K/mm3 (4.5-11.0) 04/21/19 05:21 RBC 4.37 M/mm3 (3.65-5.03) 04/21/19 05:21 Hgb 13.0 gm/dl (10.1-14.3) 04/21/19 05:21 Hct 39.6 % (30.3-42.9) 04/21/19 05:21 MCV 91 fl (79-97) 04/21/19 05:21 MCH 30 pg (28-32) 04/21/19 05:21 MCHC 33 % (30-34) 04/21/19 05:21 RDW 14.0 % (13.2-15.2) 04/21/19 05:21 Plt Count 154 K/mm3 (140-440) 04/21/19 05:21 Lymph % (Auto) 18.5 % (13.4-35.0) 04/21/19 05:21 Frio % (Auto) 10.6 % (0.0-7.3) H 04/21/19 05:21 Eos % (Auto) 0.6 % (0.0-4.3) 04/21/19 05:21 Baso % (Auto) 0.5 % (0.0-1.8) 04/21/19 05:21 Lymph # 1.2 K/mm3 (1.2-5.4) 04/21/19 05:21 Frio # 0.7 K/mm3 (0.0-0.8) 04/21/19 05:21 Eos # 0.0 K/mm3 (0.0-0.4) 04/21/19 05:21 Baso # 0.0 K/mm3 (0.0-0.1) 04/21/19 05:21 Seg Neutrophils % 69.8 % (40.0-70.0) 04/21/19 05:21 Seg Neutrophils # 4.6 K/mm3 (1.8-7.7) 04/21/19 05:21 PT 19.2 Sec. (12.2-14.9) H 04/21/19 13:51 INR 1.64 (0.87-1.13) H 04/21/19 13:51 VBG pH 7.483 (7.320-7.420) H 04/20/19 18:24 Sodium 137 mmol/L (137-145) 04/21/19 05:21 Potassium 3.0 mmol/L (3.6-5.0) L 04/21/19 05:21 Chloride 95.6 mmol/L (98-107) L 04/21/19 05:21 Carbon Dioxide 25 mmol/L (22-30) 04/21/19 05:21 Anion Gap 19 mmol/L 04/21/19 05:21 BUN 14 mg/dL (7-17) 04/21/19 05:21 Creatinine 0.8 mg/dL (0.7-1.2) 04/21/19 05:21 Estimated GFR > 60 ml/min 04/21/19 05:21 BUN/Creatinine Ratio 18 % 04/21/19 05:21 Glucose 89 mg/dL (65-100) 04/21/19 05:21 Lactic Acid 1.00 mmol/L (0.7-2.0) 04/20/19 18:24 Calcium 9.0 mg/dL (8.4-10.2) 04/21/19 05:21 Total Bilirubin 1.10 mg/dL (0.1-1.2) 04/20/19 18:24 AST > 28 units/L (5-40) 04/20/19 18:24 ALT 19 units/L (7-56) 04/20/19 18:24 Alkaline Phosphatase 72 units/L (35-129) 04/20/19 18:24 Troponin T < 0.010 ng/mL (0.00-0.029) 04/21/19 19:25 NT-Pro-B Natriuret Pep 2361 pg/mL (0-900) H 04/20/19 18:24 Total Protein 7.4 g/dL (6.3-8.2) 04/20/19 18:24 Albumin 3.6 g/dL (3.9-5) L 04/20/19 18:24 Albumin/Globulin Ratio 0.9 % 04/20/19 18:24 Urine Color Yellow (Yellow) 04/20/19 19:18 Urine Turbidity Clear (Clear) 04/20/19 19:18 Urine pH 8.0 (5.0-7.0) H 04/20/19 19:18 Ur Specific [place] 1.013 (1.003-1.030) 04/20/19 19:18 Urine Protein 30 mg/dl mg/dL (Negative) 04/20/19 19:18 Urine Glucose (UA) Neg mg/dL (Negative) 04/20/19 19:18 Urine Ketones Neg mg/dL (Negative) 04/20/19 19:18 Urine Blood Neg (Negative) 04/20/19 19:18 Urine Nitrite Neg (Negative) 04/20/19 19:18 Urine Bilirubin Neg (Negative) 04/20/19 19:18 Urine Urobilinogen 2.0 mg/dL (<2.0) 04/20/19 19:18 Ur Leukocyte Esterase Neg (Negative) 04/20/19 19:18 Urine WBC (Auto) 2.0 /HPF (0.0-6.0) 04/20/19 19:18 Urine RBC (Auto) < 1.0 /HPF (0.0-6.0) 04/20/19 19:18 U Epithel Cells (Auto) 1.0 /HPF (0-13.0) 04/20/19 19:18 Influenza A (Rapid) Negative (Negative) 04/20/19 Unknown Influenza B (Rapid) Negative (Negative) 04/20/19 Unknown Active Medications - Current Medications Current Medications: Generic Name Dose Route Start Last Admin Trade Name Freq PRN Reason Stop Dose Admin Acetaminophen 650 mg 04/20/19 19:37 04/21/19 00:01 Tylenol PO 650 mg Q4H PRN Administration Pain MILD(1-3)/Fever >100.5/MARTINEZ Albuterol 2.5 mg 04/20/19 19:37 Proventil IH Q4HRT PRN Shortness Of Breath Alprazolam 0.25 mg 04/20/19 19:37 04/21/19 00:01 Xanax PO 0.25 mg Q8H PRN Administration Anxiety Aspirin 81 mg 04/21/19 10:00 04/22/19 10:48 Baby Aspirin PO 81 mg QDAY VIVIAN Administration Carvedilol 3.125 mg 04/20/19 22:00 04/22/19 10:48 Coreg PO 3.125 mg BID VIVIAN Administration Docusate Sodium 100 mg 04/20/19 22:00 04/22/19 10:48 Colace PO Not Given BID VIVIAN Furosemide 40 mg 04/21/19 10:00 04/22/19 10:48 Lasix IV 40 mg QDAY VIVIAN Administration Heparin Sodium (Porcine) 5,000 unit 04/20/19 22:00 04/22/19 10:49 Heparin SUB-Q 5,000 unit Q12HR VIVIAN Administration Vancomycin HCl 1,250 mg/ 275 mls @ 166.667 mls/hr 04/21/19 08:00 04/22/19 10:48 Sodium Chloride IV 166.667 mls/hr Q12H VIVIAN Administration Cefepime HCl 2 gm in 100 mls @ 200 mls/hr 04/21/19 08:30 04/22/19 05:44 Cefepime/Ns 2 Gm/100 Ml IV 200 mls/hr Q8HR VIVIAN Administration Protocol Lisinopril 20 mg 04/21/19 10:00 04/22/19 10:49 Zestril PO 20 mg QDAY VIVIAN Administration Nitroglycerin 0.4 mg 04/20/19 19:37 Nitrostat SL .Q5MIN PRN Chest Pain Ondansetron HCl 4 mg 04/20/19 19:37 04/22/19 09:13 Zofran IV 4 mg Q8H PRN Administration Nausea And Vomiting Oxycodone/Acetaminophen 1 tab 04/20/19 21:33 04/22/19 05:59 Percocet 5/325 PO 1 tab Q6H PRN Administration Pain, Moderate (4-6) Potassium Chloride 10 meq 04/21/19 10:00 04/22/19 10:48 K-Dur PO 10 meq QDAY VIVIAN Administration Sodium Chloride 10 ml 04/20/19 22:00 04/22/19 10:49 Sodium Chloride Flush Syringe 10 Ml IV 10 ml BID VIVIAN Administration Sodium Chloride 10 ml 04/20/19 19:37 Sodium Chloride Flush Syringe 10 Ml IV PRN PRN LINE FLUSH
--- NOTE | 2019-04-22 13:33 | Treadmill Report ---
IMAGING PROTOCOL: Single isotope used documented as single isotope protocol. REASON FOR TEST: Chest pain, shortness of breath for heart failure. IMAGING RESULTS: Cavity is dilated on both stress and rest. Distribution of radionuclide is normal in the anterior, inferior, septal, anterolateral region, mildly decrease in the inferior lateral region seen on stress compared to rest. Gated SPECT, EF 20% with [id number] LV dysfunction. The patient infused Lexiscan with no EKG changes. SUMMARY: 1. Negative Lexiscan EKG. 2. There is small to medium sized reversible ischemia in the inferolateral region seen on stress compared to rest, otherwise normal perfusion anterior, inferior, septal region with gated SPECT, EF 20%. JOB# [id number] TY/NILAM
[2019-04-22] MEDS ORDERED: POTASSIUM CHLORIDE ER 10 MEQ TAB PO ONE (14:00)
--- NOTE | 2019-04-22 14:04 | Event Note ---
Date: 04/22/19 S/p lexiscan MPI stress test today which showed small mild inferolateral reversibility, no significant ischemia, reduced LVEF. Cont diuresis and optimize anti-ischemic regimen. Anticipate d'c home tomorrow. Nuno KAM NP / DR. MONROE
[2019-04-22] MEDS: ALPRAZolam 0.25 MG TAB PO PRN (16:42)
--- NOTE | 2019-04-22 17:02 | Consultation ---
History of Present Illness - Reason for Consult Consult date: 04/22/19 Sepsis Requesting physician: ARTUR MACK - History of Present Illness The patient is a 58-year-old female with CHF, hypertension, uterine fibroids and leimyosarcoma, recently hospitalized at [facility] due to congestive heart failure, underwent thoracentesis and was subsequently discharged. She apparently drank lots of fluids to feeling thirsty upon discharge and returned to the emergency room with complaints of shortness of breath due to CHF exacerbation. Noted to have a fever on admission and had blood cultures done. ID was consulted due to bacteremia. She is complaining of left forearm pain at the previous IV site which was placed at [facility]. Denies any indwelling prosthetic material. Review of Systems: General: no fevers, chills or rigors at present. Fever only on admission. HEENT: no new visual disturbance Respiratory: No cough, sputum, hemoptysis. SOB present but improving. Cardiovascular: No chest pain, syncope Gastrointestinal: No nausea, vomiting or diarrhea Genitourinary: No dysuria or hematuria Musculoskeletal: No new or worsening neck pain or back pain Neurologic: No headaches, seizures Hematologic: No easy bruising or bleeding Endocrine: No night sweats or acute weight loss Skin: negative for rash, jaundice Psychiatric: No suicidal or homicidal ideation Past History Past Medical History: heart failure, hypertension, other (Leiomysarcoma, scoliosis, glaucoma, fibroids ) Past Surgical History: Other (knee surgery) Social history: no significant social history, single Family history: no significant family history Medications and Allergies Allergies Allergy/AdvReac Type Severity Reaction Status Date / Time mushrooms Allergy Unknown Uncoded 04/20/19 17:01 Home Medications Medication Instructions Recorded Confirmed Last Taken Type Furosemide [Lasix] 20 mg PO QDAY 04/20/19 04/20/19 Unknown History Lisinopril [Zestril] 20 mg PO QDAY 04/20/19 04/20/19 Unknown History carvediloL [Coreg] 3.125 mg PO BID 04/20/19 04/20/19 Unknown History Active Meds: Active Medications Acetaminophen (Tylenol) 650 mg PO Q4H PRN PRN Reason: Pain MILD(1-3)/Fever >100.5/MARTINEZ Last Admin: 04/21/19 00:01 Dose: 650 mg Documented by: Albuterol (Proventil) 2.5 mg IH Q4HRT PRN PRN Reason: Shortness Of Breath Alprazolam (Xanax) 0.25 mg PO Q8H PRN PRN Reason: Anxiety Last Admin: 04/22/19 16:42 Dose: 0.25 mg Documented by: Aspirin (Baby Aspirin) 81 mg PO QDAY [facility] Last Admin: 04/22/19 10:48 Dose: 81 mg Documented by: Carvedilol (Coreg) 3.125 mg PO BID [facility] Last Admin: 04/22/19 10:48 Dose: 3.125 mg Documented by: Docusate Sodium (Colace) 100 mg PO BID [facility] Last Admin: 04/22/19 10:48 Dose: Not Given Documented by: Furosemide (Lasix) 40 mg IV QDAY [facility] Last Admin: 04/22/19 10:48 Dose: 40 mg Documented by: Heparin Sodium (Porcine) (Heparin) 5,000 unit SUB-Q Q12HR [facility] Last Admin: 04/22/19 10:49 Dose: 5,000 unit Documented by: Vancomycin HCl 1,250 mg/ (Sodium Chloride) 275 mls @ 166.667 mls/hr IV Q12H [facility] Last Admin: 04/22/19 10:48 Dose: 166.667 mls/hr Documented by: Cefepime HCl (Cefepime/Ns 2 Gm/100 Ml) 2 gm in 100 mls @ 200 mls/hr IV Q8HR [facility]; Protocol Last Admin: 04/22/19 14:08 Dose: 200 mls/hr Documented by: Isosorbide Mononitrate (Imdur) 30 mg PO QDAY [facility] Lisinopril (Zestril) 20 mg PO QDAY [facility] Last Admin: 04/22/19 10:49 Dose: 20 mg Documented by: Nitroglycerin (Nitrostat) 0.4 mg SL .Q5MIN PRN PRN Reason: Chest Pain Ondansetron HCl (Zofran) 4 mg IV Q8H PRN PRN Reason: Nausea And Vomiting Last Admin: 04/22/19 09:13 Dose: 4 mg Documented by: Oxycodone/Acetaminophen (Percocet 5/325) 1 tab PO Q6H PRN PRN Reason: Pain, Moderate (4-6) Last Admin: 04/22/19 05:59 Dose: 1 tab Documented by: Potassium Chloride (K-Dur) 10 meq PO QDAY [facility] Last Admin: 04/22/19 10:48 Dose: 10 meq Documented by: Sodium Chloride (Sodium Chloride Flush Syringe 10 Ml) 10 ml IV BID [facility] Last Admin: 04/22/19 10:49 Dose: 10 ml Documented by: Sodium Chloride (Sodium Chloride Flush Syringe 10 Ml) 10 ml IV PRN PRN PRN Reason: LINE FLUSH Physical Examination - Physical Exam Narrative exam: Physical Exam: Constitutional: Alert, cooperative. No acute distress Head, Ears, Nose: Normocephalic, atraumatic. External ears, nose normal Eyes: Conjunctivae/corneas clear. No icterus. No ptosis. Neck: Supple, no meningeal signs Oral: no thrush Cardiovascular: S1, S2 normal. 3/6 systolic murmur Respiratory: AE decreased in bases GI: Soft, non-tender; bowel sounds normal. No peritoneal signs Musculoskeletal: No pedal edema, no cyanosis. Left forearm proximally with thrombophlebitis Skin: No rash or abscess Hem/Lymphatic: No palpable cervical or supraclavicular nodes. No lymphangitis Psych: Mood ok. Affect normal Neurological: Awake, alert, oriented. No gross abnormality - Constitutional Vitals: Vital Signs Temp Pulse Resp BP Pulse Ox 99.0 F 82 19 128/95 99 04/22/19 16:29 04/22/19 16:29 04/22/19 16:29 04/22/19 16:29 04/22/19 16:29 Temperature -Last 24 Hours Temperature 99.0 F Temperature 98.3 F Temperature 98.6 F Temperature 98.8 F Temperature 99.5 F Results - Labs CBC & Chem 7: 04/21/19 05:21 04/21/19 05:21 - Imaging and Cardiology Chest x-ray: report reviewed, image reviewed (no pneumonia seen) CT scan - abdomen: report reviewed, image reviewed (multiple uterine fibroids) Assessment and Plan Cultures: 04/20/2019 blood culture: Staph aureus 04/20/2019 urine culture: No significant growth 04/22/2019 blood culture: In progress A/P: 58-year-old female with CHF, hypertension, uterine fibroids and leimyosarcoma, recently hospitalized at [facility] due to congestive heart failure, underwent thoracentesis and was subsequently discharged now admitted with: 1) Staph aureus bacteremia, source is likely left proximal forearm septic thrombophlebitis that seems to have developed from peripheral IV placed at [place]. 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 3) CHF: cardiology following. Recs: Venous US ordered to eval for SVT/DVT continue IV Vancomycin, monitor trough Cefepime discontinued TTE ordered to eval for endocarditis Follow up repeat blood cultures to ensure bacteremia clearance Brad Girard MD, FACP [facility] ([facility] C: [phone] O: [phone] F: [phone]
[2019-04-23 05:15] LABS: INR 1.58 (0.87-1.13)
[2019-04-23 05:20] LABS: BUN/Creatinine Ratio 18; Blood Urea Nitrogen 14 mg/dL (7-17); Calcium 8.9 mg/dL (8.4-10.2); Hemolysis Index 15
[2019-04-23] MEDS: oxyCODONE /ACETAMINOPHEN 5-325MG TAB PO PRN ×3 (06:08→22:08)
[2019-04-23] MEDS: carvediloL 3.125 MG TAB PO SCH ×2 (09:09→21:54)
[2019-04-23] MEDS: ALPRAZolam 0.25 MG TAB PO PRN (09:09)
[2019-04-23] MEDS: ACETAMINOPHEN 325 MG TAB PO PRN (09:09)
[2019-04-23] MEDS: VANCOMYCIN 1,250 MG in SODIUM CHLORIDE 0.9% 250ML 250 ML IV SCH (09:09)
[2019-04-23] MEDS: ASPIRIN 81 MG TAB CHEW PO SCH (09:09)
[2019-04-23] MEDS: FUROSEMIDE 40 MG/4 ML INJ IV SCH (10:33)
[2019-04-23] MEDS: POTASSIUM CHLORIDE ER 10 MEQ TAB PO SCH (10:33)
[2019-04-23] MEDS: DOCUSATE SODIUM 100 MG CAP PO SCH ×2 (10:33→21:55)
[2019-04-23] MEDS: HEPARIN 5,000 UNIT/1 ML VIAL SUB-Q SCH ×2 (10:33→21:55)
[2019-04-23] MEDS: LISINOPRIL 20 MG TAB PO SCH (10:35)
--- NOTE | 2019-04-23 10:36 | Progress Note ---
Assessment and Plan S/p lexiscan MPI stress test yesterday which showed small mild inferolateral reversibility, no significant ischemia, reduced LVEF. ID has been consulted for sepsis, TTE ordered to evaluate for endocarditis. Cont present cardiac management. The patient has been seen in conjunction with Dr. Hughes who agrees with the assessment and plan of care. - Patient Problems (1) Acute HFrEF (heart failure with reduced ejection fraction) Current Visit: Yes Status: Acute (2) History of thoracentesis Onset Date: 04/21/19 Current Visit: Yes Status: Acute (3) Chest pain Current Visit: Yes Status: Acute (4) Accelerated hypertension Onset Date: 04/21/19 Current Visit: Yes Status: Acute (5) Elevated INR Current Visit: Yes Status: Acute (6) Hypokalemia Current Visit: Yes Status: Acute (7) Uterine fibroid Onset Date: 04/21/19 Current Visit: Yes Status: Chronic Qualifiers: Uterine leiomyoma location: intramural, submucous, and subserous Qualified Code(s): D25.1 - Intramural leiomyoma of uterus; D25.0 - Submucous leiomyoma of uterus; D25.2 - Subserosal leiomyoma of uterus (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 in SR on tele. Objective Last Vital Signs Temp 99.8 F H 04/23/19 08:13 Pulse 73 04/23/19 08:37 Resp 18 04/23/19 08:13 BP 136/94 04/23/19 08:13 Pulse Ox 99 04/23/19 08:13 - Physical Examination General: No Apparent Distress HEENT: Positive: PERRL, Normocephaly, Mucus Membranes Moist Neck: Positive: neck supple, trachea midline Cardiac: Positive: Reg Rate and Rhythm, S1/S2 Lungs: Positive: Decreased Breath Sounds Neuro: Positive: Grossly Intact Abdomen: Negative: Tender Skin: Negative: Rash Musculoskeletal: No Pain Extremities: Absent: edema - Labs and Meds Coagulation 04/23/19 Range/Units 03:17 PT 18.6 H (12.2-14.9) Sec. INR 1.58 H (0.87-1.13) Comprehensive Metabolic Panel 04/23/19 Range/Units 03:17 Sodium 141 (137-145) mmol/L Potassium 3.4 L (3.6-5.0) mmol/L Chloride 101.4 (98-107) mmol/L Carbon Dioxide 26 (22-30) mmol/L BUN 14 (7-17) mg/dL Creatinine 0.8 (0.7-1.2) mg/dL Glucose 86 (65-100) mg/dL Calcium 8.9 (8.4-10.2) mg/dL - Imaging and Cardiology EKG: report reviewed, image reviewed - EKG Sinus rhythms and dysrhythmias: sinus rhythm Chamber hypertrophy or enlargement: left ventricular hypertro
--- NOTE | 2019-04-23 11:53 | Vascular Lab Report ---
LEFT UPPER EXTREMITY VENOUS DOPPLER ULTRASOUND HISTORY: Left upper extremity pain and edema COMPARISON: None. TECHNIQUE: Grayscale, color and spectral Doppler imaging of the venous system of the left upper extre mity was performed. FINDINGS: Internal Jugular Vein: Normal grayscale appearance and flow. Subclavian Vein: Normal grayscale appearance and flow. Axillary Vein: Normal venous flow, compressibility and augmentation. Brachial vein: Normal venous flow, compressibility and augmentation. Radial vein: Normal venous flow, compressibility and augmentation. Ulnar vein: Normal venous flow, compressibility and augmentation. Additional Findings: Chronic appearing superficial venous thrombosis is identified in the basilic vei n. IMPRESSION: No evidence for DVT. Superficial venous thrombosis in the left basilic vein. Signer Name: Gregg Godfrey Jr, MD Signed: 04/23/2019 11:48 AM Workstation Name: [id number]
--- NOTE | 2019-04-23 12:11 | Vascular Lab Report ---
LEFT UPPER EXTREMITY ARTERIAL DOPPLER ULTRASOUND HISTORY: Left upper extremity pain and edema COMPARISON: None. TECHNIQUE: Arias-scale, color Doppler and pulse wave Doppler examination of left upper extremity arter ies was performed. FINDINGS: Subclavian artery: PSV 93 cm/s. Triphasic waveform. Axillary artery: PSV 83 cm/s. Triphasic waveform. Brachial artery: PSV 107 cm/s. Triphasic waveform. Radial artery: PSV 55 cm/s. Triphasic waveform. Ulnar artery: PSV 32 cm/s. Triphasic waveform. Additional findings: None. IMPRESSION: 1. No significant abnormality. Signer Name: Gregg Godfrey Jr, MD Signed: 04/23/2019 12:06 PM Workstation Name: [id number]
--- NOTE | 2019-04-23 14:13 | Progress Note ---
Assessment and Plan Cultures: 04/20/2019 blood culture: MSSA 04/20/2019 urine culture: No significant growth 04/22/2019 blood culture: no growth in 24 hours A/P: 58-year-old female with CHF, hypertension, uterine fibroids and leimyosarcoma, recently hospitalized at [facility] due to congestive heart failure, underwe nt thoracentesis and was subsequently discharged now admitted with: 1) MSSA bacteremia, source is likely left proximal forearm septic thrombophlebitis that seems to have developed from peripheral IV placed at [place]. US scan positive for superficial thrombus, no DVT. 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 3) CHF: cardiology following. Recs: discontinued IV Vancomycin started IV Cefazolin for MSSA bacteremia f/u TTE ordered to eval for endocarditis Follow up repeat blood cultures to ensure bacteremia clearance. Will try to get approval for OPAT long acting glycopeptides to avoid placing a PICC line for IV abx therapy Brad Girard MD, FACP [facility] C: [phone] O: [phone] F: [phone] Subjective Date of service: 04/23/19 Principal diagnosis: HF Interval history: Low grade fever. Left forearm automatic bow maker machine tender. US scan positive for superficial thrombus, no DVT. Objective - Exam Narrative Exam: Physical Exam: Constitutional: Alert, cooperative. No acute distress Head, Ears, Nose: Normocephalic, atraumatic. External ears, nose normal Eyes: Conjunctivae/corneas clear. No icterus. No ptosis. Neck: Supple, no meningeal signs Oral: no thrush Cardiovascular: S1, S2 normal. 3/6 systolic murmur Respiratory: AE decreased in bases GI: Soft, non-tender; bowel sounds normal. No peritoneal signs Musculoskeletal: No pedal edema, no cyanosis. Left forearm proximally with thrombophlebitis, tenderness +, no fluctuation Skin: No rash or abscess Hem/Lymphatic: No palpable cervical or supraclavicular nodes. No lymphangitis Psych: Mood ok. Affect normal Neurological: Awake, alert, oriented. No gross abnormality - Constitutional Vitals: Vital Signs Temp Pulse Resp BP Pulse Ox 99.8 F H 73 18 136/94 99 04/23/19 08:13 04/23/19 08:37 04/23/19 08:13 04/23/19 08:13 04/23/19 08:13 Temperature -Last 24 Hours Temperature 99.8 F Temperature 98.4 F Temperature 98.7 F Temperature 98.9 F Temperature 99.0 F - Labs CBC & Chem 7: 04/21/19 05:21 04/23/19 03:17 Labs: Abnormal lab results 04/23/19 04/23/19 Range/Units 03:17 03:17 PT 18.6 H (12.2-14.9) Sec. INR 1.58 H (0.87-1.13) Potassium 3.4 L (3.6-5.0) mmol/L
--- NOTE | 2019-04-23 15:52 | Progress Note ---
Assessment and Plan -MSSA bacteremia, source is likely left proximal forearm septic thrombophlebitis that seems to have developed from peripheral IV placed at [facility]. US scan positive for superficial thrombus, no DVT. ID --discontinued IV Vancomycin started IV Cefazolin for MSSA bacteremia f/u TTE ordered to eval for endocarditis Follow up repeat blood cultures to ensure bacteremia clearance. Will try to get approval for OPAT long acting glycopeptides to avoid placing a PICC line for IV abx therapy Acute on chronic systolic heart failure, EF unknown -improving on IV diuretics -for ischemic evaluation with stress test today -cardiology following: data from outside hospital pending Hypokalemia -on repletion, will monitor level -will check mg level Coagulopathy -exact cause unknown -level improving, will monitor Multiple Uterine fibroids per imaging -CHIEF PROGRAM OFFICER consulted LT arm swelling with pain -c/w Superficial venous Thrombosis Disp: d/c per clinical course Subjective Date of service: 04/23/19 Principal diagnosis: CHF exacerbation,MSSA bacteremia Interval history: 58-year-old -[place] female who was a former smoker with 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 Patient states that she was admitted to [facility] on 04/16/19 and discharged yesterday (04/19/19). During her admission at [facility], pt reports undergoing therapeutic and diagnostic thoracentesis with removal of approx 1L of fluid. Per pt report pathology was negative for malignancy from thoracentesis. Since being discharged from [facility], patient states that she is experiencing difficulty in breathing. She was unable to lie flat last night, which caused her to sit up and sleep in the couch. As the day progressed her dyspnea worsened. She decided to come in for further evaluation and treatment. Additionally pt complains of pelvic pain, which she describes as sharp and rates 6/10. The pain is constant but varies in intesity. She also complains of poor appetite and poor oral intake 1 day and chills. She acknowledges intermittent nonproductive cough. L forearm tender Objective - Constitutional Vitals: Vital Signs - 12hr 04/23/19 04/23/19 04/23/19 04:03 06:08 06:58 Temperature 98.4 F Pulse Rate 77 Pulse Rate [ 99 H Apical] Pulse Rate [ 99 H From Monitor] Respiratory 17 18 18 Rate Blood Pressure 131/95 O2 Sat by Pulse 99 Oximetry 04/23/19 04/23/19 04/23/19 08:03 08:13 08:37 Temperature 99.8 F H Pulse Rate 81 73 Pulse Rate [ Apical] Pulse Rate [ From Monitor] Respiratory 18 Rate Blood Pressure 136/94 O2 Sat by Pulse 99 99 Oximetry General appearance: Present: no acute distress, well-nourished - EENT Eyes: PERRL, EOM intact ENT: hearing intact, clear oral mucosa Ears: bilateral: normal - Neck Neck: supple, normal ROM - Respiratory Respiratory effort: normal Respiratory: bilateral: CTA - Breasts Breasts: deferred - Cardiovascular Heart rate: 88 Rhythm: regular Heart Sounds: Present: S1 & S2. Absent: gallop, rub Extremities: pulses intact, No edema, normal color, Full ROM, abnormal (L Forearm swelling and tenderness just distal to elbow on Volar aspect-c/w SVT) - Gastrointestinal General gastrointestinal: Present: soft, non-tender, non-distended, normal bowel sounds - Genitourinary Female genitourinary: normal - Integumentary Integumentary: clear, warm, dry - Musculoskeletal Musculoskeletal: 1, strength equal bilaterally - Neurologic Neurologic: moves all extremities - Psychiatric Psychiatric: memory intact, appropriate mood/affect, intact judgment & insight - Labs CBC & Chem 7: 04/21/19 05:21 04/24/19 03:39 Labs: Abnormal lab results 04/23/19 04/23/19 Range/Units 03:17 03:17 PT 18.6 H (12.2-14.9) Sec. INR 1.58 H (0.87-1.13) Potassium 3.4 L (3.6-5.0) mmol/L
[2019-04-24] MEDS: ALPRAZolam 0.25 MG TAB PO PRN (00:46)
[2019-04-24 05:07] LABS: BUN/Creatinine Ratio 14; Blood Urea Nitrogen 13 mg/dL (7-17); Hemolysis Index 11
[2019-04-24] MEDS: oxyCODONE /ACETAMINOPHEN 5-325MG TAB PO PRN ×3 (06:26→17:51)
[2019-04-24] MEDS: DOCUSATE SODIUM 100 MG CAP PO SCH ×2 (09:37→21:57)
[2019-04-24] MEDS: ASPIRIN 81 MG TAB CHEW PO SCH (09:37)
[2019-04-24] MEDS: carvediloL 3.125 MG TAB PO SCH ×2 (09:37→21:57)
[2019-04-24] MEDS: POTASSIUM CHLORIDE ER 10 MEQ TAB PO SCH (09:37)
[2019-04-24] MEDS: LISINOPRIL 20 MG TAB PO SCH (09:39)
[2019-04-24] MEDS: FUROSEMIDE 40 MG/4 ML INJ IV SCH (09:40)
[2019-04-24] MEDS: HEPARIN 5,000 UNIT/1 ML VIAL SUB-Q SCH ×2 (09:40→21:59)
--- NOTE | 2019-04-24 10:58 | Progress Note ---
Assessment and Plan TTE reviewed - no evidence of endocarditis. Cont present cardiac management. The patient has been seen in conjunction with Dr. Hughes who agrees with the assessment and plan of care. - Patient Problems (1) Acute HFrEF (heart failure with reduced ejection fraction) Current Visit: Yes Status: Acute (2) History of thoracentesis Onset Date: 04/21/19 Current Visit: Yes Status: Acute (3) Chest pain Current Visit: Yes Status: Resolved (4) Accelerated hypertension Onset Date: 04/21/19 Current Visit: Yes Status: Acute (5) Elevated INR Current Visit: Yes Status: Acute (6) Hypokalemia Current Visit: Yes Status: Acute (7) Uterine fibroid Onset Date: 04/21/19 Current Visit: Yes Status: Chronic Qualifiers: Uterine leiomyoma location: intramural, submucous, and subserous Qualified Code(s): D25.1 - Intramural leiomyoma of uterus; D25.0 - Submucous leiomyoma of uterus; D25.2 - Subserosal leiomyoma of uterus (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 in SR on tele. Objective Last Vital Signs Temp 98.0 F 04/24/19 07:42 Pulse 78 04/24/19 09:39 Resp 18 04/24/19 07:42 BP 128/84 04/24/19 09:39 Pulse Ox 98 04/24/19 07:42 - Physical Examination General: No Apparent Distress HEENT: Positive: PERRL, Normocephaly, Mucus Membranes Moist Neck: Positive: neck supple, trachea midline Cardiac: Positive: Reg Rate and Rhythm, S1/S2 Lungs: Positive: Decreased Breath Sounds Neuro: Positive: Grossly Intact Abdomen: Negative: Tender Skin: Negative: Rash Musculoskeletal: No Pain Extremities: Absent: edema - Labs and Meds Comprehensive Metabolic Panel 04/24/19 Range/Units 03:39 Sodium 140 (137-145) mmol/L Potassium 3.4 L (3.6-5.0) mmol/L Chloride 100.8 (98-107) mmol/L Carbon Dioxide 27 (22-30) mmol/L BUN 13 (7-17) mg/dL Creatinine 0.9 (0.7-1.2) mg/dL Glucose 98 (65-100) mg/dL Calcium 9.0 (8.4-10.2) mg/dL - Imaging and Cardiology EKG: report reviewed, image reviewed - EKG Sinus rhythms and dysrhythmias: sinus rhythm Chamber hypertrophy or enlargement: left ventricular hypertro
--- NOTE | 2019-04-24 11:04 | Progress Note ---
Assessment and Plan Cultures: 04/20/2019 blood culture: MSSA 04/20/2019 urine culture: No significant growth 04/22/2019 blood culture: no growth in 24 hours A/P: 58-year-old female with CHF, hypertension, uterine fibroids and leimyosarcoma, recently hospitalized at [facility] due to congestive heart failure, underwe nt thoracentesis and was subsequently discharged now admitted with: 1) MSSA bacteremia, source is likely left proximal forearm septic thrombophlebitis that seems to have developed from peripheral IV placed at [facility]. US scan positive for superficial thrombus, no DVT. 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 3) CHF: cardiology following. 4) Left ankle pain: new onset. ?gout v/s osteoarthritis v/s bacteremic seeding. Get Xray for now, if effusion, will get ortho to tap the joint. Recs: if blood cultures remain negative at 48 hours (later today), can place a PICC line continue IV Cefazolin for MSSA bacteremia f/u TTE results discussed with case management, will need IV Cefazolin 2 gm q8 hrs for 4 weeks ending 05/20/2019. Left ankle pain: new onset. ?gout v/s osteoarthritis v/s bacteremic seeding. Get Xray for now, if effusion, will get ortho to tap the joint. Brad Girard MD, FACP [facility] ([facility]) C: [phone] O: [phone] F: [phone] Subjective Date of service: 04/24/19 Principal diagnosis: CHF exacerbation,MSSA bacteremia Interval history: No fever. Left forearm less painful. Now complaining of left ankle pain that started yesterday. Objective - Exam Narrative Exam: Physical Exam: Constitutional: Alert, cooperative. No acute distress Head, Ears, Nose: Normocephalic, atraumatic. External ears, nose normal Eyes: Conjunctivae/corneas clear. No icterus. No ptosis. Neck: Supple, no meningeal signs Oral: no thrush Cardiovascular: S1, S2 normal. 3/6 systolic murmur Respiratory: AE decreased in bases GI: Soft, non-tender; bowel sounds normal. No peritoneal signs Musculoskeletal: No pedal edema, no cyanosis. Left forearm proximally with thrombophlebitis, tenderness +, no fluctuation. Left ankle with mild warmth Skin: No rash or abscess Hem/Lymphatic: No palpable cervical or supraclavicular nodes. No lymphangitis Psych: Mood ok. Affect normal Neurological: Awake, alert, oriented. No gross abnormality - Constitutional Vitals: Vital Signs Temp Pulse Resp BP Pulse Ox 98.0 F 78 18 128/84 98 04/24/19 07:42 04/24/19 09:39 04/24/19 07:42 04/24/19 09:39 04/24/19 07:42 Temperature -Last 24 Hours Temperature 98.0 F Temperature 98.4 F Temperature 98.4 F Temperature 97.8 F Temperature 98.4 F - Labs CBC & Chem 7: 04/21/19 05:21 04/24/19 03:39 Labs: Abnormal lab results 04/24/19 Range/Units 03:39 Potassium 3.4 L (3.6-5.0) mmol/L
--- NOTE | 2019-04-24 12:37 | XRay Report ---
LEFT ANKLE, 3 VIEWS INDICATION: L ankle pain. gout v/s septic arthritis. COMPARISON: None. IMPRESSION: No acute osseous or soft tissue abnormality. No significant DJD. No radiographic find ings to suggest septic arthritis or gout Signer Name: Gregg Godfrey Jr, MD Signed: 04/24/2019 12:33 PM Workstation Name: [id number]
[2019-04-24] MEDS: ACETAMINOPHEN 325 MG TAB PO PRN (14:26)
--- NOTE | 2019-04-24 15:48 | Progress Note ---
Assessment and Plan Assessment and plan: -MSSA bacteremia, source is likely left proximal forearm septic thrombophlebitis that seems to have developed from peripheral IV placed at [facility]. US scan positive for superficial thrombus, no DVT. if blood cultures remain negative at 48 hours, we will place a PICC line continue IV Cefazolin for MSSA bacteremia f/u TTE results Pt. will need IV Cefazolin 2 gm q8 hrs for 4 weeks ending 05/20/2019. Left ankle pain, new onset. ?gout v/s osteoarthritis v/s bacteremic seeding. Get Xray for now, if effusion, will get ortho to tap the joint. 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 LT arm swelling with pain -c/w Superficial venous Thrombosis Disp: d/c per clinical course History Interval history: No new issues Hospitalist Physical - Constitutional Vitals: Temp Pulse Resp BP Pulse Ox 98.0 F 84 16 113/74 97 04/24/19 07:42 04/24/19 12:09 04/24/19 14:26 04/24/19 12:09 04/24/19 12:09 General appearance: Present: no acute distress, well-nourished - EENT Eyes: Present: PERRL, EOM intact ENT: hearing intact, clear oral mucosa, dentition normal - Neck Neck: Present: supple, normal ROM - Respiratory Respiratory effort: normal Respiratory: bilateral: CTA - Cardiovascular Rhythm: regular Heart Sounds: Present: S1 & S2. Absent: gallop, rub - Extremities Extremities: no ischemia, No edema, Full ROM - Abdominal General gastrointestinal: soft, non-tender, non-distended, normal bowel sounds - Integumentary Integumentary: Present: clear, warm, dry - Neurologic Neurologic: CNII-XII intact, moves all extremities Results - Labs CBC & Chem 7: 04/21/19 05:21 04/24/19 03:39 Labs: Laboratory Last Values WBC 6.6 K/mm3 (4.5-11.0) 04/21/19 05:21 RBC 4.37 M/mm3 (3.65-5.03) 04/21/19 05:21 Hgb 13.0 gm/dl (10.1-14.3) 04/21/19 05:21 Hct 39.6 % (30.3-42.9) 04/21/19 05:21 MCV 91 fl (79-97) 04/21/19 05:21 MCH 30 pg (28-32) 04/21/19 05:21 MCHC 33 % (30-34) 04/21/19 05:21 RDW 14.0 % (13.2-15.2) 04/21/19 05:21 Plt Count 154 K/mm3 (140-440) 04/21/19 05:21 Lymph % (Auto) 18.5 % (13.4-35.0) 04/21/19 05:21 [place] % (Auto) 10.6 % (0.0-7.3) H 04/21/19 05:21 Eos % (Auto) 0.6 % (0.0-4.3) 04/21/19 05:21 Baso % (Auto) 0.5 % (0.0-1.8) 04/21/19 05:21 Lymph # 1.2 K/mm3 (1.2-5.4) 04/21/19 05:21 [place] # 0.7 K/mm3 (0.0-0.8) 04/21/19 05:21 Eos # 0.0 K/mm3 (0.0-0.4) 04/21/19 05:21 Baso # 0.0 K/mm3 (0.0-0.1) 04/21/19 05:21 Seg Neutrophils % 69.8 % (40.0-70.0) 04/21/19 05:21 Seg Neutrophils # 4.6 K/mm3 (1.8-7.7) 04/21/19 05:21 PT 18.6 Sec. (12.2-14.9) H 04/23/19 03:17 INR 1.58 (0.87-1.13) H 04/23/19 03:17 VBG pH 7.483 (7.320-7.420) H 04/20/19 18:24 Sodium 140 mmol/L (137-145) 04/24/19 03:39 Potassium 3.4 mmol/L (3.6-5.0) L 04/24/19 03:39 Chloride 100.8 mmol/L (98-107) 04/24/19 03:39 Carbon Dioxide 27 mmol/L (22-30) 04/24/19 03:39 Anion Gap 16 mmol/L 04/24/19 03:39 BUN 13 mg/dL (7-17) 04/24/19 03:39 Creatinine 0.9 mg/dL (0.7-1.2) 04/24/19 03:39 Estimated GFR > 60 ml/min 04/24/19 03:39 BUN/Creatinine Ratio 14 % 04/24/19 03:39 Glucose 98 mg/dL (65-100) 04/24/19 03:39 Lactic Acid 1.00 mmol/L (0.7-2.0) 04/20/19 18:24 Calcium 9.0 mg/dL (8.4-10.2) 04/24/19 03:39 Magnesium 1.90 mg/dL (1.7-2.3) 04/23/19 03:17 Total Bilirubin 1.10 mg/dL (0.1-1.2) 04/20/19 18:24 AST > 28 units/L (5-40) 04/20/19 18:24 ALT 19 units/L (7-56) 04/20/19 18:24 Alkaline Phosphatase 72 units/L (35-129) 04/20/19 18:24 Troponin T < 0.010 ng/mL (0.00-0.029) 04/21/19 19:25 NT-Pro-B Natriuret Pep 2361 pg/mL (0-900) H 04/20/19 18:24 Total Protein 7.4 g/dL (6.3-8.2) 04/20/19 18:24 Albumin 3.6 g/dL (3.9-5) L 04/20/19 18:24 Albumin/Globulin Ratio 0.9 % 04/20/19 18:24 Urine Color Yellow (Yellow) 04/20/19 19:18 Urine Turbidity Clear (Clear) 04/20/19 19:18 Urine pH 8.0 (5.0-7.0) H 04/20/19 19:18 Ur Specific [place] 1.013 (1.003-1.030) 04/20/19 19:18 Urine Protein 30 mg/dl mg/dL (Negative) 04/20/19 19:18 Urine Glucose (UA) Neg mg/dL (Negative) 04/20/19 19:18 Urine Ketones Neg mg/dL (Negative) 04/20/19 19:18 Urine Blood Neg (Negative) 04/20/19 19:18 Urine Nitrite Neg (Negative) 04/20/19 19:18 Urine Bilirubin Neg (Negative) 04/20/19 19:18 Urine Urobilinogen 2.0 mg/dL (<2.0) 04/20/19 19:18 Ur Leukocyte Esterase Neg (Negative) 04/20/19 19:18 Urine WBC (Auto) 2.0 /HPF (0.0-6.0) 04/20/19 19:18 Urine RBC (Auto) < 1.0 /HPF (0.0-6.0) 04/20/19 19:18 U Epithel Cells (Auto) 1.0 /HPF (0-13.0) 04/20/19 19:18 Influenza A (Rapid) Negative (Negative) 04/20/19 Unknown Influenza B (Rapid) Negative (Negative) 04/20/19 Unknown Active Medications - Current Medications Current Medications: Generic Name Dose Route Start Last Admin Trade Name Freq PRN Reason Stop Dose Admin Acetaminophen 650 mg 04/20/19 19:37 04/24/19 14:26 Tylenol PO 650 mg Q4H PRN Administration Pain MILD(1-3)/Fever >100.5/MARTINEZ Albuterol 2.5 mg 04/20/19 19:37 Proventil IH Q4HRT PRN Shortness Of Breath Alprazolam 0.25 mg 04/20/19 19:37 04/24/19 00:46 Xanax PO 0.25 mg Q8H PRN Administration Anxiety Aspirin 81 mg 04/21/19 10:00 04/24/19 09:37 Baby Aspirin PO 81 mg QDAY VIVIAN Administration Carvedilol 3.125 mg 04/20/19 22:00 04/24/19 09:37 Coreg PO 3.125 mg BID VIVIAN Administration Docusate Sodium 100 mg 04/20/19 22:00 04/24/19 09:37 Colace PO 100 mg BID VIVIAN Administration Furosemide 40 mg 04/21/19 10:00 04/24/19 09:40 Lasix IV 40 mg QDAY VIVIAN Administration Heparin Sodium (Porcine) 5,000 unit 04/20/19 22:00 04/24/19 09:40 Heparin SUB-Q 5,000 unit Q12HR VIVIAN Administration Cefazolin Sodium 2 gm/ Sodium 100 mls @ 200 mls/hr 04/23/19 15:00 04/24/19 14:26 Chloride IV 200 mls/hr Q8HR VIVIAN Administration Protocol Isosorbide Mononitrate 30 mg 04/23/19 10:00 04/24/19 09:39 Imdur PO 30 mg QDAY VIVIAN Administration Lisinopril 20 mg 04/21/19 10:00 04/24/19 09:39 Zestril PO 20 mg QDAY VIVIAN Administration Nitroglycerin 0.4 mg 04/20/19 19:37 Nitrostat SL .Q5MIN PRN Chest Pain Ondansetron HCl 4 mg 04/20/19 19:37 04/22/19 09:13 Zofran IV 4 mg Q8H PRN Administration Nausea And Vomiting Oxycodone/Acetaminophen 1 tab 04/20/19 21:33 04/24/19 12:07 Percocet 5/325 PO 1 tab Q6H PRN Administration Pain, Moderate (4-6) Potassium Chloride 10 meq 04/21/19 10:00 04/24/19 09:37 K-Dur PO 10 meq QDAY VIVIAN Administration Sodium Chloride 10 ml 04/20/19 22:00 04/24/19 09:40 Sodium Chloride Flush Syringe 10 Ml IV 10 ml BID VIVIAN Administration Sodium Chloride 10 ml 04/20/19 19:37 Sodium Chloride Flush Syringe 10 Ml IV PRN PRN LINE FLUSH
[2019-04-25] MEDS: oxyCODONE /ACETAMINOPHEN 5-325MG TAB PO PRN ×3 (00:02→11:03)
[2019-04-25 04:53] LABS: Basophils % (Auto) 0.5 % (0.0-1.8); Eosinophils # (Auto) 0.1 K/mm3 (0.0-0.4); Eosinophils % (Auto) 1.2 % (0.0-4.3); Hematocrit 36.8 % (30.3-42.9); Lymphocytes # (Auto) 1.8 K/mm3 (1.2-5.4); Mean Corpuscular HGB Conc 33 % (30-34); Mean Corpuscular Volume 91 fl (79-97); Monocytes # (Auto) 0.6 K/mm3 (0.0-0.8); Monocytes % (Auto) 11.4 % (0.0-7.3); Platelet Count 196 K/mm3 (140-440); Red Blood Count 4.05 M/mm3 (3.65-5.03); Red Cell Distribution Width 13.9 % (13.2-15.2)
[2019-04-25 05:06] LABS: BUN/Creatinine Ratio 15; Blood Urea Nitrogen 12 mg/dL (7-17); Calcium 9.2 mg/dL (8.4-10.2); Hemolysis Index 17
[2019-04-25 05:23] VITALS: BP 115/80
--- NOTE | 2019-04-25 10:50 | Discharge Summary ---
Providers - Providers Date of Admission: 04/20/19 19:37 Date of discharge: 04/25/19 Attending physician: KRYSTEN JULIEN 04/20/19 19:37 Consult to Physician [CONS] Routine Comment: Consulting Provider: EDISON DALY Physician Instructions: Reason For Exam: AE CHF, recently diagnosed CHF, s/p thoracentesis 04/20/19 21:29 Consult to Physician [CONS] Routine Comment: Consulting Provider: WARD CAIN Physician Instructions: Reason For Exam: 21.5cm lesion, malignant degeneration leiomyos 04/22/19 12:56 Consult to Physician [CONS] Routine Comment: Consulting Provider: BRAD GARCIA Physician Instructions: Reason For Exam: sepsis 04/24/19 12:30 Consult to Case Management [CONS] Routine Services Needed at Discharge: Other Notified:: case resolution specialist Comment:: IV abx upon discharge Additional Physician Instructions: [facility] [place] [facility] ([facility] O: [phone] F: [phone] OUTPATIENT PARENTERAL ANTIBIOTIC THERAPY (OPAT) ORDERS Diagnoses: MSSA bacteremia Antimicrobial administration: IV Cef azolin 2 gm q8 hrs for 4 weeks ending 05/20/2019 - Remove PICC line after last dose unless otherwise instructed. Lines: Maintain IV access with weekly dressing changes and locks per protocol. Lab monitoring: - CBC with differential, Creatinine, ALT, AST, CRP once a week every Sunday while on IV antibiotics. Please fax results to [phone] and call [phone] for critical lab results. 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 Patient apparently drank excessive amounts of fluid after discharge and return back to the emergency room with complaints of shortness of breath due to CHF exacerbation. She was also noted to have fever on admission. The patient was admitted with diagnosis of CHF exacerbation and sepsis. Cardiology was consulted for the CHF and was treated with GDMT with significant improvement. ID also saw the patient in consultation and found that the sepsis was secondary to MSSA bacteremia with source believed to be secondary to left proximal forearm septic thromboph lebitis that seems to have developed from peripheral IV placed at [place]. US scan positive for superficial thrombus, no DVT. The patient was treated with IV Cefazolin and echocardiogram was obtained which ruled out endocarditis. With regards to the symptomatic uterine fibroids. [employer] BOLT BANDER suspected leiomyosarcoma and plans for outpatient follow-up with [employer]OTH BOLT BANDER. The patient also has some left ankle pain with suspicion for gout versus septic arthritis per ID. X-rays were obtained which revealed no significant DJD, no acute osseous or soft tissue abnormality and no findings suggestive of septic arthritis or gout. Patient is felt to receive maximal hospital benefit and will be discharged home. Dedicated discharge time 32 minutes. Disposition: [id number]-01 TO HOME OR SELFCARE Time spent for discharge: 32 - Discharge Diagnoses (1) Accelerated hypertension Status: Acute (2) Acute HFrEF (heart failure with reduced ejection fraction) Status: Acute (3) Acute exacerbation of congestive heart failure Status: Acute (4) History of uterine fibroid Status: Acute (5) Leiomyosarcoma Status: Chronic (6) Uterine fibroid Status: Chronic Qualifiers: Uterine leiomyoma location: intramural, submucous, and subserous Qualified Code(s): D25.1 - Intramural leiomyoma of uterus; D25.0 - Submucous leiomyoma of uterus; D25.2 - Subserosal leiomyoma of uterus (7) Sepsis Status: Suspected Core Measure Documentation - Palliative Care Palliative Care/ Comfort Measures: Not Applicable - Core Measures Any of the following diagnoses?: heart failure - Heart Failure Discharge Requirements KARLIE/ARB for LVSD if EF <40%: Yes Beta selena at discharge: Yes Exam - Constitutional Vitals: Temp Pulse Resp BP Pulse Ox 98.0 F 76 20 115/80 97 04/25/19 05:22 04/25/19 05:22 04/25/19 05:36 04/25/19 05:22 04/25/19 05:22 General appearance: Present: no acute distress, well-nourished - EENT Eyes: Present: PERRL ENT: hearing intact, clear oral mucosa - Neck Neck: Present: supple, normal ROM - Respiratory Respiratory effort: normal Respiratory: bilateral: CTA - Cardiovascular Heart Sounds: Present: S1 & S2. Absent: rub, click - Extremities Extremities: pulses symmetrical, No edema Peripheral Pulses: within normal limits - Abdominal General gastrointestinal: Present: soft, non-tender, non-distended, normal bowel sounds Female genitourinary: Present: normal - Integumentary Integumentary: Present: clear, warm, dry - Musculoskeletal Musculoskeletal: gait normal, strength equal bilaterally - Psychiatric Psychiatric: appropriate mood/affect, intact judgment & insight - Neurologic Neurologic: CNII-XII intact, moves all extremities Plan Activity: advance as tolerated Weight Bearing Status: Weight Bear as Tolerated Diet: low fat, low cholesterol, low salt Special Instructions: restrict fluid intake to (1 L), home health RN Follow up with: PRIMARY MD MELINA [Primary Care Provider] - 7 Days BRAD GARCIA MD [Staff Physician] - 7 Days AMANDA DALY MD [Staff Physician] - 7 Days WARD CAIN MD [Staff Physician] - 7 Days Prescriptions: Aspirin [Aspirin BABY CHEW TAB] 81 mg PO QDAY #30 tab.chew carvediloL [Coreg] 3.125 mg PO BID #60 tab ISOSORBIDE MONOnitrate [Imdur ER] 30 mg PO QDAY #30 tablet Potassium Chloride [K-Dur] 10 meq PO QDAY #30 tablet Furosemide [Lasix TAB] 40 mg PO QDAY #30 tablet oxyCODONE /ACETAMINOPHEN [Percocet 5/325 mg] 1 tab PO Q6H PRN #12 tablet PRN Reason: Pain, Moderate (4-6) ALPRAZolam [Xanax TAB] 0.25 mg PO Q8H PRN #12 tablet PRN Reason: Anxiety Lisinopril [Zestril TAB] 20 mg PO QDAY #30 tab
--- NOTE | 2019-04-25 10:52 | Progress Note ---
Assessment and Plan TTE reviewed - no evidence of endocarditis. Pt appears to be nearing/at euvolemia. Convert IV lasix to PO lasix. Cont all other present cardiac management. Nothing further to add from cardiac perspective at this time. Will sign off. Recommend follow up with [facility] or in our office with Dr. Hughes within 3-5 days of discharge ([phone]). The patient has been seen in conjunction with Dr. Hughes who agrees with the assessment and plan of care. - Patient Problems (1) Acute HFrEF (heart failure with reduced ejection fraction) Current Visit: Yes Status: Acute (2) History of thoracentesis Onset Date: 04/21/19 Current Visit: Yes Status: Acute (3) Chest pain Current Visit: Yes Status: Resolved (4) Accelerated hypertension Onset Date: 04/21/19 Current Visit: Yes Status: Acute (5) Elevated INR Current Visit: Yes Status: Acute (6) Hypokalemia Current Visit: Yes Status: Acute (7) Uterine fibroid Onset Date: 04/21/19 Current Visit: Yes Status: Chronic Qualifiers: Qualified Code(s): D25.1 - Intramural leiomyoma of uterus; D25.0 - Submucous leiomyoma of uterus; D25.2 - Subserosal leiomyoma of uterus (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 in SR on tele. Objective Last Vital Signs Temp 98.0 F 04/25/19 05:22 Pulse 76 04/25/19 05:22 Resp 20 04/25/19 05:36 BP 115/80 04/25/19 05:22 Pulse Ox 97 04/25/19 05:22 - Physical Examination General: No Apparent Distress HEENT: Positive: PERRL, Normocephaly, Mucus Membranes Moist Neck: Positive: neck supple, trachea midline Cardiac: Positive: Reg Rate and Rhythm, S1/S2 Lungs: Positive: Decreased Breath Sounds Neuro: Positive: Grossly Intact Abdomen: Negative: Tender Skin: Negative: Rash Musculoskeletal: No Pain Extremities: Absent: edema - Labs and Meds CBC 04/25/19 Range/Units 03:44 WBC 5.4 (4.5-11.0) K/mm3 RBC 4.05 (3.65-5.03) M/mm3 Hgb 12.0 (10.1-14.3) gm/dl Hct 36.8 (30.3-42.9) % Plt Count 196 (140-440) K/mm3 Lymph # 1.8 (1.2-5.4) K/mm3 [place] # 0.6 (0.0-0.8) K/mm3 Eos # 0.1 (0.0-0.4) K/mm3 Baso # 0.0 (0.0-0.1) K/mm3 Comprehensive Metabolic Panel 04/25/19 Range/Units 03:44 Sodium 141 (137-145) mmol/L Potassium 3.4 L (3.6-5.0) mmol/L Chloride 100.9 (98-107) mmol/L Carbon Dioxide 29 (22-30) mmol/L BUN 12 (7-17) mg/dL Creatinine 0.8 (0.7-1.2) mg/dL Glucose 105 H (65-100) mg/dL Calcium 9.2 (8.4-10.2) mg/dL - Imaging and Cardiology EKG: report reviewed, image reviewed - EKG Sinus rhythms and dysrhythmias: sinus rhythm Chamber hypertrophy or enlargement: left ventricular hypertro
[2019-04-25] MEDS: DOCUSATE SODIUM 100 MG CAP PO SCH (10:56)
[2019-04-25] MEDS: POTASSIUM CHLORIDE ER 10 MEQ TAB PO SCH (10:57)
[2019-04-25] MEDS: carvediloL 3.125 MG TAB PO SCH (10:57)
[2019-04-25] MEDS: LISINOPRIL 20 MG TAB PO SCH (10:57)
[2019-04-25] MEDS: ASPIRIN 81 MG TAB CHEW PO SCH (10:57)
[2019-04-25] MEDS: HEPARIN 5,000 UNIT/1 ML VIAL SUB-Q SCH (11:39)
--- NOTE | 2019-04-25 13:35 | XRay Report ---
CHEST 1 VIEW INDICATION: picc line placment. COMPARISON: 04/20/2019 FINDINGS: Support devices: Right arm PICC has been inserted which terminates at the cavoatrial junction. Heart: Stable cardiomegaly. Lungs/Pleura: No acute air space or interstitial disease. Additional findings: None. IMPRESSION: Right arm PICC as described. Stable cardiomegaly. Lungs clear. Signer Name: Gregg Godfrey Jr, MD Signed: 04/25/2019 1:31 PM Workstation Name: [id number]
[2019-04-25] MEDS: ACETAMINOPHEN 325 MG TAB PO PRN (16:48)
--- NOTE | 2019-04-25 16:51 | Progress Note ---
Assessment and Plan Cultures: 04/20/2019 blood culture: MSSA 04/20/2019 urine culture: No significant growth 04/22/2019 blood culture: No growth in 72 hours A/P: 58-year-old female with CHF, hypertension, uterine fibroids and leimyosarcoma, recently hospitalized at [facility] due to congestive heart failure, underwe nt thoracentesis and was subsequently discharged now admitted with: 1) MSSA bacteremia, source is likely left proximal forearm septic thrombophlebitis that seems to have developed from peripheral IV placed at [place]. US scan positive for superficial thrombus, no DVT. TTE unremarkable. Repeat blood cultures negative. 2) Symptomatic uterine fibroids, suspected Leiomyosarcoma: seen by [facility], planned outpt follow up. 3) CHF: cardiology following. 4) Left ankle pain: new onset. ?gout v/s osteoarthritis v/s bacteremic seeding. Xray is negative for any effusion. Advised patient to monitor over the next few days. Recs: IV Cefazolin 2 gm q8 hrs for 4 weeks ending 05/20/2019. CM orders already placed ID clinic follow up (patient has contact info) OK for discharge from ID standpoint (IV abx per CM has been arranged for) Brad Girard MD, FACP [facility] C: [phone] O: [phone] F: [phone] Subjective Date of service: 04/25/19 Principal diagnosis: CHF exacerbation,MSSA bacteremia Interval history: No fever. No nausea, vomiting. No diarrhea. Left ankle still hurts, Xray was negative. Left forearm pain is improving. Got PICC line and planned for discharge. Objective - Exam Narrative Exam: Physical Exam: Constitutional: Alert, cooperative. No acute distress Head, Ears, Nose: Normocephalic, atraumatic. External ears, nose normal Eyes: Conjunctivae/corneas clear. No icterus. No ptosis. Neck: Supple, no meningeal signs Oral: no thrush Cardiovascular: S1, S2 normal. 3/6 systolic murmur Respiratory: AE decreased in bases GI: Soft, non-tender; bowel sounds normal. No peritoneal signs Musculoskeletal: No pedal edema, no cyanosis. Left forearm proximally with thrombophlebitis, tenderness +. Left ankle with mild warmth + Skin: No rash or abscess Hem/Lymphatic: No palpable cervical or supraclavicular nodes. No lymphangitis Psych: Mood ok. Affect normal Neurological: Awake, alert, oriented. No gross abnormality - Constitutional Vitals: Vital Signs Temp Pulse Resp BP Pulse Ox 98.0 F 76 22 115/80 97 04/25/19 05:22 04/25/19 05:22 04/25/19 11:03 04/25/19 05:22 04/25/19 05:22 Temperature -Last 24 Hours Temperature 98.0 F Temperature 98.0 F Temperature 98.0 F - Labs CBC & Chem 7: 04/25/19 03:44 04/25/19 03:44 Labs: Abnormal lab results 04/25/19 04/25/19 Range/Units 03:44 03:44 [place] % (Auto) 11.4 H (0.0-7.3) % Potassium 3.4 L (3.6-5.0) mmol/L Glucose 105 H (65-100) mg/dL
[2019-04-26] MEDS ORDERED: FUROSEMIDE 40 MG TAB PO SCH (10:00)
== END 2019-04-25 19:02 | disposition home health service (06) | DRG 871 ==
LOC: ED 16:59 → 4A 19:37
PROVIDERS: ADMIT Internal Medicine; ATTEND Hospitalist
PROC: 02HV33Z Insertion of Infusion Device into Superior Vena Cava, Percutaneous Approach (ICD-10-PCS; principal; 2019-04-25)
DX: A41.01 Sepsis due to Methicillin susceptible Staphylococcus aureus (principal); J96.01 Acute respiratory failure with hypoxia; I50.23 Acute on chronic systolic (congestive) heart failure; D68.9 Coagulation defect, unspecified; E87.6 Hypokalemia; D25.0 Submucous leiomyoma of uterus; D25.1 Intramural leiomyoma of uterus; D25.2 Subserosal leiomyoma of uterus; C49.9 Malignant neoplasm of connective and soft tissue, unspecified; I16.0 Hypertensive urgency; H40.9 Unspecified glaucoma; Z87.891 Personal history of nicotine dependence; Z79.899 Other long term (current) drug therapy; Z91.018 Allergy to other foods; T80.1XXA Vascular complications following infusion, transfusion and therapeutic injection, initial encounter; I80.8 Phlebitis and thrombophlebitis of other sites
CPT/HCPCS: 36415; 71045; 74176; 78452; 80048; 80053; 81001; 82140; 82805; 83735; 83880; 84484; 85025; 85610; 87040; 87076; 87086; 87116; 87186; 87400; 93005; 93010; 93017; 93306; 94760; 96374; G0378; A9502; J0690; J0692; J1644; J1940; J2405; J2785; J3370; J7040; J7050